=== PATIENT | male | born 1940 | race Caucasian/White ===

== ENCOUNTER 2018-01-24 08:13 | Day surgery (SDC) | payer OTHER ==
[2018-01-24] MEDS ORDERED: LIDOCAINE 1% 300 MG/30 ML SDV SC ONE (08:20)
--- NOTE | 2018-01-24 09:30 | PDHPUP ---
History & Physical Update H&P update statement: This history and physical update is based on an assessment of the patient which was completed after admission or registration (within 24 hours), but prior to the surgery/procedure. H&P update: H&P reviewed & patient examined, no change in patient's condition since H&P completed
--- NOTE | 2018-01-24 10:29 | CPIP ---
[f rep st] INVASIVE CARDIAC PROCEDURE DATE OF PROCEDURE: 01/24/2018 PROCEDURE: LINQ insertion. INDICATIONS: Presyncope. Abnormal Holter monitor with bradycardia and possible atrial tachycardia. COMPLICATIONS: None. DESCRIPTION OF PROCEDURE: Informed consent was obtained. The patient was prepped and draped in ster ile fashion. 1% lidocaine was used for local anesthesia over the left parasternal area. Using stand angela technique, a [employer] LINQ device was inserted subcutaneously, and the incision was closed with 3 otis. Serial number: [id number]. R-waves are reading 0.4 mV at immediate post implant interrogation. CONCLUSIONS: Successful LINQ implantation. Follow up in our office for staple removal and interroga tion in 1 week. Patient currently in stable condition. /[id number]/MODL
== END 2018-01-24 11:07 | disposition home or self-care (01) ==
LOC: FCATH 08:13
PROVIDERS: ATTEND Internal Medicine Cardiovascular Disease
PROC: 0JH60PZ Insertion of Cardiac Rhythm Related Device into Chest Subcutaneous Tissue and Fascia, Open Approach (ICD-10-PCS; principal; 2018-01-24)
DX: R55 Syncope and collapse (principal); R00.1 Bradycardia, unspecified; I48.92 Unspecified atrial flutter; I47.2 Ventricular tachycardia; Q23.1 Congenital insufficiency of aortic valve; I10 Essential (primary) hypertension; R42 Dizziness and giddiness
CPT/HCPCS: C1764

== ENCOUNTER 2018-09-20 11:57 | Inpatient (IN) | payer OTHER ==
[2018-09-20] MEDS ORDERED: diphenhydrAMINE 25 MG CAP PO ONE ×2 (12:06→13:46)
[2018-09-20] MEDS ORDERED: FAMOTIDINE 20 MG TAB PO ONE (12:06)
[2018-09-20] MEDS ORDERED: DIAZEPAM 5 MG TAB PO ONE (12:06)
[2018-09-20] MEDS ORDERED: NS 1,000 ML IV ONE (12:06)
[2018-09-20] MEDS ORDERED: ASPIRIN EC 325 MG TAB PO ONE ×2 (12:06→13:46)
[2018-09-20] MEDS ORDERED: MIDAZOLAM 2 MG/2 ML VIAL ONE (13:23)
[2018-09-20] MEDS ORDERED: LIDOCAINE 1% 300 MG/30 ML SDV ONE (13:23)
[2018-09-20] MEDS ORDERED: IOPAMIDOL (ISOVUE-370) 150 ML BTL IV ONE (13:23)
[2018-09-20] MEDS ORDERED: fentaNYL 100 MCG/2 ML INJ ONE (13:23)
[2018-09-20 13:45] LABS: PLATELET COUNT 157 10^3/uL (150-400)
[2018-09-20] MEDS ORDERED: DIAZEPAM 5 MG TAB ONE (13:46)
[2018-09-20] MEDS ORDERED: FAMOTIDINE 20 MG TAB ONE (13:46)
--- NOTE | 2018-09-20 13:50 | PDPROPOC ---
Sedation Plan of Care Sedation Plan of Care: vital signs stable, mental status noted, patient educated of risks, benefits, alternatives, patient can tolerate sedation ASA Classification: ASA 2 Planned drugs: fentanyl, midazolam Mallampati Score: Class 2 Mallampati Reference Image: Patient passed 3-3-2 rule?: Yes
[2018-09-20 13:53] LABS: INR 1.02 (0.83-1.16); PROTIME(PATIENT) 13.6 SEC (12.0-15.0)
[2018-09-20] MEDS ORDERED: ATROPINE SULFATE 1 MG/10 ML SYR IVP PRN (14:59)
[2018-09-20] MEDS ORDERED: ONDANSETRON 4 MG/2 ML VIAL IVP PRN (14:59)
[2018-09-20] MEDS ORDERED: NITROGLYCERIN 0.4 MG BTL SL PRN (14:59)
[2018-09-20] MEDS ORDERED: CALCIUM CARBONATE 500 MG CHEWABLE TAB PO PRN (15:00)
--- NOTE | 2018-09-20 15:44 | CPIP ---
DATE OF PROCEDURE: 09/20/2018 PROCEDURE: Coronary angiography. INDICATION: 1. Class II to III anginal equivalent. 2. High risk abnormal nuclear stress test with multiple zones of ischemia. ACCESS: Patient was prepped and draped in sterile fashion. 1% lidocaine was used to anesthetize the right inguinal region. A 6-Comoran introducer sheath was placed selectively into the right common fe moral artery via modified Seldinger technique. CORONARY ANGIOGRAPHY: A 6-Comoran JL4 was advanced to the left main coronary artery and images obtain ed. The left main coronary artery trifurcated into an LAD, ramus, and circumflex coronary arteries. The left main coronary artery had a very eccentric distal 50% to 75% stenosis present. The left ant erior descending coronary artery was diffusely diseased. In the mid vessel, there is a single discre te 90% stenosis present. The left anterior descending coronary artery gave rise to 1 prominent diago nal branch. The prominent diagonal branch had a proximal 50% to 60% stenosis present. The ramus cor onary artery was a small to moderate-sized vessel. The ramus coronary artery was 100% occluded. It was being filled by [id number], as well as [id number]-fb-[id number] collaterals. Circumflex coronary artery w as a small to moderate-sized vessel. The circumflex coronary artery had an ostial 70% stenosis prese nt. A 6-Comoran JR4 was advanced to the right coronary artery and images obtained. The right coronary art nieves was dominant. The right coronary artery was diffusely diseased. In the mid vessel, there is a d iscrete 40% stenosis present. LEFT VENTRICULOGRAPHY: Left ventriculography was not performed as patient has a known bicuspid valve with recent assessment by echocardiography. COMPLICATIONS: None. CONCLUSIONS: 1. Left main and 3-vessel coronary artery disease. 2. Plan is for surgical evaluation. /[id number]/MODL
[2018-09-20] MEDS: GABAPENTIN 300 MG CAP PO SCH (21:03)
[2018-09-20] MEDS: ATORVASTATIN CALCIUM 20 MG TAB PO SCH (21:23)
--- NOTE | 2018-09-20 22:45 | CPEKG ---
Test Reason : OPEN Blood Pressure : / mmHG Vent. Rate : 052 BPM Atrial Rate : 053 BPM P-R Int : 255 ms QRS Dur : 112 ms QT Int : 478 ms P-R-T Axes : 055 -39 016 degrees QTc Int : 445 ms Sinus rhythm Prolonged LA interval LAD Nonspecific intraventricular conduction delay Abnormal R-wave progression, early transition Confirmed by Jian Iniguez ([id number]) on 09/20/2018 10:45:24 PM Referred By: Confirmed By:Jian Iniguez
[2018-09-21] MEDS: ASPIRIN 325 MG TAB PO SCH (08:49)
[2018-09-21] MEDS: GABAPENTIN 300 MG CAP PO SCH ×2 (08:49→21:04)
[2018-09-21] MEDS: CYANO/VITAMIN B12 1000 MCG TAB PO SCH (08:51)
[2018-09-21] MEDS: CHOLECALCIFEROL VIT D3 1,000 UNITS TAB PO SCH (08:51)
[2018-09-21] MEDS: VALSARTAN 160 MG TAB PO SCH (08:52)
[2018-09-21] MEDS: METOPROLOL SUCCINATE XR 25 MG TAB PO SCH (08:59)
--- NOTE | 2018-09-21 11:02 | PDMN ---
Medical Necessity Medical necessity: Pt meets inpt criteria per MD order and MCG M-40, Angina. y/ o w/class II to III angina equivalent and high risk abnormal nuclear stress test w/multiple zones of ischemia requiring coronary angiography which revealed left main and 3-vessel coronary artery disease. Pt will have cardiothoracic surgery consult, bypass surgery likely this hospitalization. Est LOS>2MN for further eval and pending surgery/recovery.
--- NOTE | 2018-09-21 15:58 | ASMTCMCOM ---
CM Note CM Note Notes: Pt is a 78 y/o man admitted for CAD. Pt will most likely d/c independent when medically stable. No therapies ordered at this time. CM available for changes. Plan: Independent Date Signed: 09/21/2018 03:57 PM Electronically Signed By:EMILI Saravia
--- NOTE | 2018-09-21 17:40 | SOAPPROG ---
[facility] Progress Note Assessment/Plan: 1. CAD - Pt presented with symptoms of progressive MENDOZA. Angiogram demonstrated significant LM and 3VD. Pt is anticipating CABG in the am. --> CABG in am --> Continue asa, metoprolol, valsartan, and atorvastatin 2. Aortic stenosis - Pt has a functionally bicuspid aortic valve with mild to moderate aortic stenosis. The valve is calcified and expected to deteriorate further. Anticipate AVR at time of surgery 3. Hyperlipidemia - LDL = 44. --> Continue current therapy. Subjective: No chest pain No orthopnea or PND No access site complications Objective: Vital Signs Temp Pulse Resp BP Pulse Ox 36.6 C 57 L 16 130/68 H 92 09/21/18 16:00 09/21/18 16:00 09/21/18 16:00 09/21/18 16:00 09/21/18 16:00 Laboratory Results 09/20/18 13:31 09/20/18 13:31 09/20/18 09/21/18 09/22/18 05:59 05:59 05:59 Intake Total 200 Balance 200 PT 13.6 SEC (12.0-15.0) 09/20/18 13:31 INR 1.02 (0.83-1.16) 09/20/18 13:31 Physical Exam - Physical Exam General Appearance: alert, no apparent distress Respiratory: lungs clear Cardiac/Chest: systolic murmur Abdomen: non-tender, soft Extremities: other (NO hematoma or echymosis.) ICD10 Worksheet Patient Problems: Problems Problem Status Onset Atrial flutter Acute HTN (hypertension) Acute Osteoarthritis of right knee Acute Word finding difficulty Acute
[2018-09-21] MEDS ORDERED: CHLORHEXIDINE GLUC HIBICLENS 118 ML BTL TP SCH (21:00)
[2018-09-21] MEDS: ATORVASTATIN CALCIUM 20 MG TAB PO SCH (21:05)
[2018-09-22] MEDS ORDERED: VERAPAMIL 5 MG, NITROGLYCERIN 2.5 MG, HEPARIN 500 UNIT, SODIUM BICARBONATE 0.2 MEQ in L... MISC ONE (06:00)
[2018-09-22] MEDS ORDERED: PHENYLEPHRINE HCL 50 MG in NS 250 ML IV ONE (06:00)
[2018-09-22] MEDS ORDERED: CITRATE DEXTROSE SOLN 500 ML BAG MISC ONE (06:00)
[2018-09-22] MEDS ORDERED: MUPIROCIN 2% 22 GM OINT NS ONE (06:00)
[2018-09-22] MEDS ORDERED: CARDIOPLEGIC SOLUTION 1,052.8 ML PF ONE (06:00)
[2018-09-22] MEDS ORDERED: ceFAZolin 2 GM/DEXTROSE 100 ML IV ONE (06:00)
[2018-09-22] MEDS ORDERED: MANNITOL 25% 12.5 GM/50 ML VIAL IVP ONE (06:00)
[2018-09-22] MEDS ORDERED: CHLORHEXIDINE GLUC HIBICLENS 118 ML BTL TP SCH (06:00)
[2018-09-22] MEDS ORDERED: PAPAVERINE HCL 60 MG in NS 100 ML IV ONE (06:00)
[2018-09-22] MEDS ORDERED: INSULIN REGULAR HUMAN 100 UNIT in NS 100 ML IV ONE (06:00)
[2018-09-22] MEDS ORDERED: NOREPINEPHRINE BITARTRATE 16 MG in NS 250 ML IV ONE (06:00)
[2018-09-22] MEDS ORDERED: AMINOCAPROIC ACID 5 GM/20 ML VIAL IV ONE (06:00)
[2018-09-22] MEDS ORDERED: DOBUTamine 500 MG in D5W 250 ML IV SCH (06:00)
[2018-09-22] MEDS ORDERED: MILRINONE/DEXTROSE/100 ML BAG IV ONE (06:50)
[2018-09-22] MEDS ORDERED: PROTAMINE SULFATE 50 MG/5 ML VIAL IVP ONE (06:50)
[2018-09-22] MEDS ORDERED: NA BICARBONATE 50 MEQ/50 ML VIAL ONE (06:50)
[2018-09-22] MEDS ORDERED: CALCIUM CHLORIDE 1 GM/10 ML INJ ONE ×2 (06:50→06:51)
[2018-09-22] MEDS ORDERED: HEPARIN 10,000 UNIT/10 ML MDV (1,000 UNIT/ML) ONE ×2 (06:50→06:52)
[2018-09-22] MEDS ORDERED: LIDOCAINE 2% 100 MG/5 ML SYR ONE ×2 (06:51→08:24)
[2018-09-22] MEDS ORDERED: NITROGLYCERIN/D5W 50 MG/250 ML BOTTLE IV ONE (06:51)
[2018-09-22] MEDS ORDERED: ADENOSINE 6 MG/2 ML VIAL ONE (06:51)
[2018-09-22] MEDS ORDERED: niCARdipine/NACL/200 ML BAG IV ONE (06:51)
[2018-09-22] MEDS ORDERED: DOPamine/DEXTROSE 400 MG/250 ML BAG IV ONE (06:51)
[2018-09-22] MEDS ORDERED: ceFAZolin 1 GM VIAL ONE (06:51)
[2018-09-22] MEDS ORDERED: ALBUMIN 5% 250 ML BOTTLE IV ONE (06:51)
[2018-09-22] MEDS ORDERED: AMIODARONE HCL 150 MG/3 ML VIAL ONE ×2 (06:51→06:52)
[2018-09-22] MEDS ORDERED: MAGNESIUM SULFATE 1 GM/2 ML VIAL ONE (06:52)
[2018-09-22] MEDS ORDERED: CITRATE DEXTROSE SOLN 500 ML BAG ONE (06:52)
[2018-09-22] MEDS ORDERED: methylPREDNISolone SOD SUCC 1 GM/8 ML VIAL ONE (06:52)
--- NOTE | 2018-09-22 06:59 | PDHPUP ---
History & Physical Update H&P update statement: This history and physical update is based on an assessment of the patient which was completed after admission or registration (within 24 hours), but prior to the surgery/procedure. H&P update: H&P reviewed & patient examined, changes noted ( in need of AVR)
[2018-09-22] MEDS ORDERED: PAPAVERINE HCL 60 MG/2 ML SDV ONE (07:40)
[2018-09-22] MEDS ORDERED: MIDAZOLAM 2 MG/2 ML VIAL IVP ONE (08:00)
[2018-09-22] MEDS ORDERED: MIDAZOLAM 2 MG/2 ML VIAL ONE ×2 (08:01→08:23)
--- NOTE | 2018-09-22 08:02 | PDANEPAE ---
ANE History of Present Illness and CAD s/f AVR and CABG ANE Past Medical History - Cardiovascular History Hx Hypertension: Yes Hx Arrhythmias: Yes Hx Chest Pain: No Hx Coronary Artery / Peripheral Vascular Disease: No Hx CHF / Valvular Disease: No Hx Palpitations: No Cardiovascular History Comment: A-FLUTTER - Pulmonary History Hx COPD: No Hx Asthma/Reactive Airway Disease: No Hx Recent Upper Respiratory Infection: No Hx Oxygen in Use at Home: No Hx Sleep Apnea: Yes Sleep Apnea Screening Result - Last Documented: Positive - Neurologic History Hx Cerebrovascular Accident: No Hx Seizures: No Hx Dementia: No - Endocrine History Hx Diabetes: No - Renal History Hx Renal Disorders: No - Liver History Hx Hepatic Disorders: No - Neurological & Psychiatric Hx Hx Neurological and Psychiatric Disorders: Yes Neurological / Psychiatric History Comment: MIGRAINES SINCE AGE 19 USES RX FOR AURA. ANXIETY - Cancer History Hx Cancer: No - Congenital Disorder History Hx Congenital Disorders: No - GI History Hx Gastrointestinal Disorders: Yes Gastrointestinal History Comment: REFLUX DURING EXERCISE DOES FOOD MANAGEMENT BEFORE OR USES TUMS - Other Health History Other Health History: HAS CATARACTS - Chronic Pain History Chronic Pain: Yes (RT KNEE) - Surgical History Prior Surgeries: ATRIAL ABLATION 09/2015. CORNELIUS KNEE SCOPES ANE Review of Systems Review of Systems: - Exercise capacity Exercise capacity: >=4 METS ANE Patient History - Allergies Allergies/Adverse Reactions: mold Allergy (Verified 07/22/15 17:33) - Home Medications Home medications: home medication list seen and reviewed Home Medications: Apixaban [Eliquis] 5 mg PO BID 09/19/18 [Last Taken 09/18/18] Aspirin [Aspirin 325 mg (*)] 325 mg PO DAILY 09/19/18 [Last Taken Unknown] Atorvastatin Calcium [Lipitor 20 mg (*)] 20 mg PO HS 09/19/18 [Last Taken ] Calcium Carbonate [Tums 500MG (*)] 500 mg PO DAILY PRN 09/19/18 [Last Taken Unknown] Cholecalciferol Vit D3 [Vitamin D3 (*)] 1,000 units PO DAILY 09/19/18 [Last Taken 09/18/18] Cyanocobalamin [Vitamin B12 (*)] 1,000 mcg PO DAILY 09/19/18 [Last Taken ] Gabapentin [Neurontin 300 MG (*)] 1,200 mg PO BID 09/19/18 [Last Taken 09/18/18] Metoprolol Succinate Xr [Toprol Xl 25 mg (*)] 12.5 mg PO DAILY 09/19/18 [Last Taken 09/18/18] [place]-3 Fatty Acids [Fish Oil 1000 mg (*)] 1,000 mg PO DAILY 09/19/18 [Last Taken 09/18/18] Valsartan [Diovan (*)] 160 mg PO DAILY 09/19/18 [Last Taken 09/18/18] - NPO status NPO Status: no food or drink >8 hours NPO Since - Liquids (Date): 09/21/18 NPO Since - Liquids (Time): 18:00 NPO Since - Solids (Date): 09/21/18 NPO Since - Solids (Time): 18:00 - Smoking Hx Smoking Status: Never smoked - Alcohol Use Alcohol Use: Rarely - Family Anes Hx Family Anes Hx: none ANE Labs/Vital Signs - Labs Result Diagrams: 09/20/18 13:31 09/20/18 13:31 - Vital Signs Blood Pressure: 139/72 Heart Rate: 50 Respiratory Rate: 16 O2 Sat (%): 92 Height: 183 cm Weight: 93.077 kg ANE Physical Exam - Airway Neck exam: FROM Mallampati Score: Class 2 Mouth exam: poor dentition - Pulmonary Pulmonary: no respiratory distress - Cardiovascular Cardiovascular: regular rate and rhythym - ASA Status ASA Status: III ANE Anesthesia Plan Anesthesia Plan: general endotracheal anesthesia Lines/Monitors: arterial line, central line, NAIN
[2018-09-22] MEDS ORDERED: REMIFENTANIL HCL 1 MG VIAL ONE ×2 (08:23→10:25)
[2018-09-22] MEDS ORDERED: PROPOFOL/EMULSION 500 MG/50 ML BOTTLE IV ONE ×2 (08:23→10:25)
[2018-09-22] MEDS ORDERED: fentaNYL 250 MCG/5 ML INJ ONE ×2 (08:23→13:36)
[2018-09-22] MEDS ORDERED: ONDANSETRON 4 MG/2 ML VIAL ONE (08:24)
[2018-09-22] MEDS ORDERED: DEXAMETHASONE 4 MG/ML VIAL ONE ×2 (08:24)
[2018-09-22] MEDS ORDERED: ROCURONIUM 100 MG/10 ML VIAL ONE (08:24)
[2018-09-22] MEDS ORDERED: ePHEDrine SULFATE 25 MG/5 ML SYR ONE (08:40)
[2018-09-22] MEDS ORDERED: PHENYLEPHRINE HCL 100 MCG/ML SYR ONE (09:53)
--- NOTE | 2018-09-22 10:31 | ASMTCMCOM ---
CM Note CM Note Notes: Pt is having open heart surgery today. Needs are TBD at this time. CM will discuss with Dr. Marsh/team. Date Signed: 09/22/2018 10:29 AM Electronically Signed By:EMILI Saravia
[2018-09-22] MEDS: ASPIRIN 325 MG TAB PO SCH (12:35)
[2018-09-22] MEDS: CYANO/VITAMIN B12 1000 MCG TAB PO SCH (12:35)
[2018-09-22] MEDS: CHOLECALCIFEROL VIT D3 1,000 UNITS TAB PO SCH (12:35)
[2018-09-22] MEDS: METOPROLOL SUCCINATE XR 25 MG TAB PO SCH (12:38)
[2018-09-22] MEDS: GABAPENTIN 300 MG CAP PO SCH (12:38)
[2018-09-22] MEDS: VALSARTAN 160 MG TAB PO SCH (12:39)
[2018-09-22] MEDS ORDERED: DEXMEDETOMIDINE HCL 400 MCG in NS 100 ML IV SCH (13:00)
[2018-09-22] MEDS ORDERED: ONDANSETRON 4 MG/2 ML VIAL IVP PRN (14:09)
[2018-09-22] MEDS ORDERED: ACETAMINOPHEN 325 MG TAB PO PRN (14:09)
[2018-09-22] MEDS ORDERED: LACTULOSE 20 GM/30 ML UDCUP PO PRN (14:09)
[2018-09-22] MEDS ORDERED: PANTOPRAZOLE SODIUM 40 MG VIAL IVP ONE (14:09)
[2018-09-22] MEDS ORDERED: BISACODYL 10 MG SUPP PR PRN (14:09)
[2018-09-22] MEDS ORDERED: SODIUM CL NASAL 45 ML BTL EACHNARE PRN (14:09)
[2018-09-22] MEDS ORDERED: POLYETHYLENE GLYCOL 3350 17 GM PKT PO PRN (14:09)
[2018-09-22] MEDS ORDERED: ONDANSETRON DISINTEGRATING 4 MG TAB PO PRN (14:09)
[2018-09-22] MEDS ORDERED: POTASSIUM Cl (KCl) 50 ML IV PRN (14:09)
[2018-09-22] MEDS ORDERED: METOCLOPRAMIDE 10 MG/2 ML VIAL IVP PRN (14:09)
[2018-09-22] MEDS ORDERED: MAGNESIUM HYDROXIDE 30 ML UDCUP PO PRN (14:09)
[2018-09-22] MEDS ORDERED: ACETAMINOPHEN 650 MG SUPP PR PRN (14:09)
[2018-09-22] MEDS ORDERED: MEPERIDINE 25 MG/0.5 ML AMP IVP PRN (14:09)
[2018-09-22] MEDS ORDERED: D50W 25 GM/50 ML SYR IVP PRN (14:09)
[2018-09-22] MEDS ORDERED: NS 1,000 ML IV SCH (14:15)
[2018-09-22] MEDS ORDERED: INSULIN REGULAR HUMAN 100 UNIT in NS 100 ML IV SCH (14:30)
[2018-09-22] MEDS ORDERED: niCARdipine/NACL 200 ML IV SCH (14:30)
--- NOTE | 2018-09-22 14:49 | GOP ---
DATE OF OPERATION: 09/22/2018 SURGEON: Suman Abarca MD DRAWER IN JACQUARD LOOM: Iglesia Payne PA-C PREOPERATIVE DIAGNOSIS: 1. Severe left main coronary artery disease. 2. Ousj-tt-xtuhrztk aortic stenosis with grqo-be-fjyynxru aortic insufficiency. POSTOPERATIVE DIAGNOSIS: 1. Severe left main coronary artery disease. 2. Baqs-qg-wxnklyot aortic stenosis with oash-sl-emuxnmyt aortic insufficiency. PROCEDURE PERFORMED: 1. Triple vessel coronary artery bypass grafting. 2. Endoscopic vein harvest from the left leg. 3. Aortic valve replacement using a 27 mm Magna Ease bovine pericardial valve. FINDINGS: INDICATIONS: Patient is a 78-year-old gentleman with atypical angina. He had cardiac catheterizatio n and was found to have left main disease. Right coronary is normal. He has javd-kg-jcemnxwf aortic stenosis, but an extremely heavily calcified valve and at least mild aortic insufficiency. We have elected to replace his valve at the time of his coronary bypass surgery. DESCRIPTION OF PROCEDURE: The patient was taken to the operating room and placed on the operating ta ble in the supine position. After the induction of general anesthesia and single-lumen arterial tube intubation, the patient was prepped and draped sterilely. A standard median sternotomy was performe d, and the left internal mammary artery was taken down with electrocautery and hemoclips. While the saphenous vein was harvested from the left leg using a minimally invasive endoscopic technique, the p atient was heparinized and mammary was found to have good flow. The patient was cannulated with a Sa rns 8.0 Soft-Flow aortic cannula, as well as dual-staged venous right atrial cannula. Cardiopulmonar y bypass was instituted. The distal vessels were marked for grafting. The cross-clamp was applied a nd the heart was arrested with 1 L of [place] solution. First, the marginal branch of the circumfle x was dissected open, probed and anastomosed end-to-side to a vein graft using running 7-0 Prolene. Next the diagonal was also dissected open and anastomosed end-to-side to a separate vein graft. Insp ection of the ramus revealed a small, occluded diminutive vessel. The LAD was opened in its 3rd port ion and anastomosed end-to-side to the left internal mammary artery. This was then tacked to the epi cardium. Attention was directed next to the aortic valve. The aorta was opened and a tri-leaflet va lve was encountered. It was excised and the annulus was meticulously debrided. It was sized to a 27 mm valve and then sutures were then placed around the annulus with pledgets on the ventricular side, and the valve was seated without difficulty. The aorta was then closed in 2 layers and the cross-cl amp was removed. A partial occlusion clamp was placed and the vein grafts were each individually coco stomosed end-to-side to the ascending aorta using running 6-0 Prolene. These were de-aired and allow ed to flow freely. Left, right and mediastinal chest tubes were placed, as well as 2 ventricular pac ing wires. The patient was from bypass without difficulty. Post pump transesophageal echo shows preservation of left ventricular function and a normally functioning bioprosthetic valve the a ortic position. Protamine was administered and the patient was decannulated. All the cannulation sit es were doubly secured with Prolene suture, and after hemostasis had been achieved the heart was cove red with pericardium and fat, and the chest was closed with #6 stainless steel wires. Subcutaneous t issue and skin were closed with running Vicryl suture. Patient tolerated the procedure well. SUMMARY OF GRAFTS: Left internal mammary artery to the left anterior descending artery, saphenous ve in graft from the aorta to D2, saphenous vein graft from aorta to M1. /[id number]/MODL
[2018-09-22] MEDS: ALBUMIN 5% 250 ML IV PRN ×2 (15:00→19:01)
[2018-09-22] MEDS ORDERED: ALBUMIN 5% 500 ML BOTTLE IV ONE (16:43)
[2018-09-22] MEDS ORDERED: ALBUMIN 5% 500 ML IV ONE (17:00)
[2018-09-22] MEDS: fentaNYL 100 MCG/2 ML INJ IVP PRN ×2 (18:46→23:07)
[2018-09-22] MEDS: SENNOSIDES/DOCUSATE SODIUM TAB PO SCH (21:26)
[2018-09-22] MEDS: MUPIROCIN 2% 22 GM OINT NS SCH (22:32)
[2018-09-22] MEDS: ceFAZolin 2 GM/DEXTROSE 100 ML IV SCH (22:32)
[2018-09-22] MEDS: HYDROCODONE/APAP 5/325 TAB PO PRN (22:55)
[2018-09-23] MEDS ORDERED: ALBUMIN 5% 250 ML BOTTLE IV ONE ×2 (01:03→07:14)
[2018-09-23] MEDS: fentaNYL 100 MCG/2 ML INJ IVP PRN ×2 (01:21→05:41)
[2018-09-23 05:11] LABS: PLATELET COUNT 84 10^3/uL (150-400)
[2018-09-23] MEDS: HYDROCODONE/APAP 5/325 TAB PO PRN (05:41)
[2018-09-23] MEDS: ceFAZolin 2 GM/DEXTROSE 100 ML IV SCH ×3 (05:48→22:35)
--- NOTE | 2018-09-23 07:34 | SOAPPROG ---
[facility] Progress Note Assessment/Plan: POD#1 CABG x 3/AVR (#27 Magna Ease tissue valve)/Endoscopic vein harvest left leg CAD with severe left main stenosis - s/p CABG x 3. -On ASA. Will resume Lipitor when taking better po. No BB or ACEi for now to avoid hypotension. Aortic stenosis/insufficiency with bicuspid aortic valve - s/p tissue AVR. On ASA. Hx Paroxysmal Afib/Aflutter - s/p Aflutter ablation 2014 - On Eliquis preop. Currently in SR 70's. - No BB to avoid hypotension. HTN - Radial Glenys pressures ~30pts higher than cuff pressures. - Will d/c Glenys. Cuff pressure shows SBP upper 80's. Will give albumin and monitor. Hold BB. SHANIQUE on CPAP - Stable no issues Acute blood loss anemia - H&H 9.7/27.7 (10.2/29.1). - Will follow. Secondary thrombocytopenia d/t CPB - Plt count 84k (104k). Will follow. Hx of speech and balance problems - Speech problems this am, however no focal deficits. - Will try to avoid narcs and treat pain with Tylenol. GERD - Stable. On Pepcid. Migraines - On Gabapentin prn. DVT prophylaxis - SCDs only. Plan: D/c Glenys and chastity D/c martinez Wrap and cap pacing wires Transfer to floor today Subjective: Patient reports having a long history of sternal pain from injury in the past which is exacerbated with sternotomy. Patient reports poor pain control. Objective: Vital Signs Temp Pulse Resp BP Pulse Ox 36.9 C 74 20 119/52 L 94 09/23/18 04:00 09/23/18 07:00 09/23/18 07:00 09/23/18 06:00 09/23/18 07:00 Laboratory Results 09/23/18 05:03 09/23/18 05:03 09/22/18 09/23/18 09/24/18 05:59 05:59 05:59 Intake Total 100 1918 Output Total 1870 105 Balance 100 48 -105 PT 13.6 SEC (12.0-15.0) 09/20/18 13:31 INR 1.02 (0.83-1.16) 09/20/18 13:31 Physical Exam - Physical Exam General Appearance: WD/WN, alert, no apparent distress Neck: supple Respiratory: lungs clear, normal breath sounds, decreased breath sounds Cardiac/Chest: regular rate, rhythm, friction rub, other (sternum stable, sternotomy c/d/i.) Abdomen: non-tender, soft, other (hypoactive BS) Skin: normal color, warm/dry Extremities: other (Warm, no edema. left leg incision c/d/i. ) Neuro/Psych: alert, normal mood/affect (problems with speech this am, however has a history of this preop. ) ICD10 Worksheet Patient Problems: Problems Problem Status Onset Acute blood loss as cause of postoperative anemia Acute CAD (coronary artery disease) Acute S/P AVR Acute S/P CABG x 3 Acute Atrial flutter Acute HTN (hypertension) Acute Osteoarthritis of right knee Acute Word finding difficulty Acute
--- NOTE | 2018-09-23 07:56 | CPEKG ---
Test Reason : OPEN Blood Pressure : / mmHG Vent. Rate : 072 BPM Atrial Rate : 072 BPM P-R Int : 261 ms QRS Dur : 153 ms QT Int : 464 ms P-R-T Axes : 068 000 -06 degrees QTc Int : 508 ms Sinus rhythm Prolonged VT interval Right bundle branch block Compared to EKG dated September 20 2018 the RBBB is new and the VT interval prolongation has increased Confirmed by Jian Iniguez ([id number]) on 09/23/2018 7:56:31 AM Referred By: Confirmed By:Jian Iniguez
[2018-09-23] MEDS ORDERED: ALBUMIN 5% 250 ML IV ONE ×2 (08:00→08:35)
[2018-09-23] MEDS ORDERED: OXYCODONE/APAP 5/325 TAB PO PRN (08:08)
[2018-09-23] MEDS: CHOLECALCIFEROL VIT D3 1,000 UNITS TAB PO SCH (08:56)
[2018-09-23] MEDS: ASPIRIN 81 MG CHEWABLE TAB PO SCH (08:56)
[2018-09-23] MEDS: SENNOSIDES/DOCUSATE SODIUM TAB PO SCH ×2 (08:56→20:29)
[2018-09-23] MEDS: PANTOPRAZOLE SODIUM 40 MG TAB PO SCH (08:56)
[2018-09-23] MEDS: MUPIROCIN 2% 22 GM OINT NS SCH ×2 (08:58→20:31)
[2018-09-23] MEDS ORDERED: ACETAMINOPHEN 325 MG TAB PO PRN (10:25)
--- NOTE | 2018-09-23 11:10 | POSTANESTH ---
Post Anesthetic Evaluation Cardiovascular Status: Normal, Stable Respiratory Status: Normal, Stable, Tx Decrease in SpO2 (mild post op decreased O2) Level of Consciousness/Mental Status: Can Participate in Eval, Alert and Oriented Pain Control: Adequate, Prn Tx Ordered Nausea/Vomiting Control: Adequate, Prn Tx Ordered Complications Possibly Related to Anesthesia: None Noted
[2018-09-23] MEDS: traMADol 50 MG TAB PO PRN ×3 (11:25→20:30)
[2018-09-23] MEDS: FAMOTIDINE 20 MG TAB PO SCH (11:26)
[2018-09-23] MEDS: oxyCODONE IR 5 MG TAB PO PRN ×3 (13:47→23:40)
[2018-09-23] MEDS ORDERED: NS 500 ML IV ONE (19:30)
[2018-09-24] MEDS: traMADol 50 MG TAB PO PRN (03:50)
[2018-09-24 04:12] LABS: PLATELET COUNT 104 10^3/uL (150-400)
[2018-09-24] MEDS: oxyCODONE IR 5 MG TAB PO PRN ×2 (04:40→09:37)
[2018-09-24] MEDS: ceFAZolin 2 GM/DEXTROSE 100 ML IV SCH (04:42)
[2018-09-24] MEDS: ASPIRIN 81 MG CHEWABLE TAB PO SCH (08:06)
[2018-09-24] MEDS: FAMOTIDINE 20 MG TAB PO SCH (08:06)
[2018-09-24] MEDS: PANTOPRAZOLE SODIUM 40 MG TAB PO SCH (08:06)
[2018-09-24] MEDS: SENNOSIDES/DOCUSATE SODIUM TAB PO SCH ×2 (08:06→21:12)
[2018-09-24] MEDS: CHOLECALCIFEROL VIT D3 1,000 UNITS TAB PO SCH (08:06)
[2018-09-24] MEDS ORDERED: ALBUMIN 5% 250 ML IV ONE (09:43)
--- NOTE | 2018-09-24 10:45 | ASMTCMCOM ---
CM Note CM Note Notes: Patient transferred to ICU after code blue, Pat was in the room and has called her sister for support. CM to follow. Date Signed: 09/24/2018 10:45 AM Electronically Signed By:Rochelle Staley
[2018-09-24] MEDS ORDERED: MAGNESIUM SULF 1 GM/DEXTROSE 100 ML BAG IV ONE (11:33)
--- NOTE | 2018-09-24 11:50 | SOAPPROG ---
[facility] Progress Note Assessment/Plan: Assessment: 78-year-old male currently 3 days postoperative from 3 vessel bypass surgery which was performed in conjunction with placement of a bioprosthetic aortic valve. Historically, he has had a normal ejection fraction. A bedside echocardiogram was done today which confirms a normal ejection fraction. Earlier today he developed hemodynamically unstable polymorphic VT in the setting of a prolonged QT interval. This appears to be consistent with torsade de Pointe. It appears that this was triggered by a PVC. Following a single defibrillation appears to be doing well. He is currently in an accelerated junctional rhythm. He has had a history of sick sinus syndrome. Postoperatively there have been documented episodes of complete heart block as well as episodes of atrial fibrillation. Plan: 1. I reprogrammed his epicardial pacemaker to a rate of 80 beats per minute. While he is currently in an accelerated junctional rhythm at 90 beats per minute , I anticipate that eventually he will start to slow down. The elevated base rate should help shorten his QT interval and prevent further episodes similar to this. 2. He was given a g of magnesium intravenously. 3. Currently a full metabolic panel including magnesium is pending. 4. I have asked the pharmacist to review his medications for any drug drug interactions or isolated medications that could be precipitating elongation of his QT interval. 5. He will be monitored in the ICU. 6. I think that prior to hospital discharge he would benefit from placement of a dual-chamber ICD. Subjective: Earlier today, the patient developed unstable torsade de Pointe. Code blue was called. The patient was resuscitated with a single 200 joule shock. There was no CPR performed. The patient did not receive any medications. He is currently postoperative day 3 following three-vessel coronary artery bypass graft surgery which was performed in conjunction with bioprosthetic aortic valve replacement. He initially presented with angina and by coronary angiography was found to have three-vessel disease with moderate aortic stenosis. He has a history of paroxysmal atrial flutter status post ablation in 2015. He has had recurrent paroxysmal atrial fibrillation for which he was treated as an outpatient with systemic anticoagulation. Additionally, he has a history of sick sinus syndrome with outpatient monitoring indicating episodes of Mobitz type 1 av block. He has had nonsustained ventricular tachycardia noted on outpatient monitoring as well. Earlier today he was sitting in his chair doing well. He developed the abrupt onset of what appears to be torsade de Pointe and was treated as above. In reviewing telemetry strips and electrocardiographic tracings he has an electrocardiogram that demonstrates a right bundle branch block with a prolonged QT interval above 500 milliseconds. On telemetry it appears that he had a PVC which occurred on the T-wave. This likely precipitated the development of this arrhythmia. Following the defibrillation, his ECG demonstrated similar findings with no acute ST or T changes. He was in an accelerated junctional rhythm. Previously he had been in complete heart block. He has epicardial leads in place which were being used for demand pacing. Objective: Vital Signs Temp Pulse Resp BP Pulse Ox 36.7 C 64 19 98/53 L 92 09/24/18 07:23 09/24/18 07:23 09/24/18 07:23 09/24/18 07:23 09/24/18 07:23 Laboratory Results 09/24/18 03:50 09/24/18 10:40 09/23/18 09/24/18 09/25/18 05:59 05:59 05:59 Intake Total 1918 2280.5 250 Output Total 1870 995 25 Balance 48 1285.5 225 PT 13.6 SEC (12.0-15.0) 09/20/18 13:31 INR 1.02 (0.83-1.16) 09/20/18 13:31 Physical Exam - Physical Exam General Appearance: WD/WN, other (He is appropriate however appears to have word -finding difficulties) EENT: PERRL/EOMI Neck: non-tender, full range of motion Respiratory: lungs clear, No crackles, No rales, No rhonchi Cardiac/Chest: regular rate, rhythm, edema (Trace edema), systolic murmur (11/19) , other (Midline sternotomy incision which is healed well, chest tube in place) , No gallop, No JVD Peripheral Pulses: 2+: carotid (R), carotid (L) Abdomen: normal bowel sounds, non-tender, soft Male Genitalia: deferred Rectal: deferred Neuro/Psych: alert, normal mood/affect ICD10 Worksheet Patient Problems: Problems Problem Status Onset Acute blood loss as cause of postoperative anemia Acute CAD (coronary artery disease) Acute S/P AVR Acute S/P CABG x 3 Acute Atrial flutter Acute HTN (hypertension) Acute Osteoarthritis of right knee Acute Word finding difficulty Acute
[2018-09-24] MEDS ORDERED: MAGNESIUM SULF 1 GM/DEXTROSE 100 ML IV ONE (12:00)
--- NOTE | 2018-09-24 12:14 | SOAPPROG ---
SOAP Progress Note Assessment/Plan: POD#2 CABG x 3/AVR (#27 Magna Ease tissue valve)/Endoscopic vein harvest left leg CAD with severe left main stenosis - s/p CABG x 3. -On ASA and Lipitor. No BB to avoid hypotension and d/t pauses. Aortic stenosis/insufficiency with bicuspid aortic valve - s/p tissue AVR. On ASA. Polymorphic VT/Torsades arrest s/p defib x 1 this am - Patient was defibrillated once with immediate recovery. Chest compressions not performed. - Transferred back to ICU today. - Cardiology evaluated patient and recommends ICD placement prior to discharge. - Repeat labs and echo pending Paroxysmal Afib/Aflutter s/p Aflutter ablation 2015 - On Eliquis preop. - Short runs of afib and several pauses yesterday requiring pacing. Currently in an accelerated junctional rhythm in the 90's with backup rate of 80. - Cardiology evaluated patient today and recommends ICD/PPM prior to discharge. - No BB to avoid hypotension. HTN - Radial Glenys pressures were ~30pts higher than cuff pressures when initially in ICU. - Patient actually hypotensive postop with SBP 80-100's. - Will start Dopamine today. SHANIQUE on CPAP - Stable no issues Acute blood loss anemia - H&H 9.5/28.9 (9.7/27.7) - Will follow Secondary thrombocytopenia d/t CPB - Plt count 104 (84k) - Will follow Leukocytosis - WBC 17.0 (10.5). Patient afebrile with no overt evidence of infection. - Will check UA and continue to follow Acute kidney injury - BUN 29/Cr 1.5 (18/0.8) with diminishing urine output. - Will check Reena and repeat labs in am - D51/2NS at 50mls/hr started today - Received albumin this am AMS changes/Hx of speech and balance problems - Patient more confused this am. - Problems with word finding worsening, however no focal deficits. - Will d/c narcs and treat pain with Tylenol. - Will ask Neurology to see patient. GERD - Stable. On Pepcid. Migraines - On Gabapentin prn. DVT prophylaxis - SCDs only. Subjective: Patient is confused and frustrated because he is having problems with word finding. Patient reports adequate pain control right now. Objective: Vital Signs Temp Pulse Resp BP Pulse Ox 36.7 C 64 19 98/53 L 92 09/24/18 07:23 09/24/18 07:23 09/24/18 07:23 09/24/18 07:23 09/24/18 07:23 Laboratory Results 09/24/18 03:50 09/24/18 10:40 09/23/18 09/24/18 09/25/18 05:59 05:59 05:59 Intake Total 1918 2280.5 250 Output Total 1870 995 25 Balance 48 1285.5 225 PT 13.6 SEC (12.0-15.0) 09/20/18 13:31 INR 1.02 (0.83-1.16) 09/20/18 13:31 Physical Exam - Physical Exam General Appearance: WD/WN, alert, no apparent distress Neck: supple Respiratory: normal breath sounds, decreased breath sounds (bases), other (No wheezing, rhochi, rales.) Cardiac/Chest: regular rate, rhythm, friction rub, other (No murmurs or gallops. Sternum stable. Sternotomy c/d/i. ) Abdomen: normal bowel sounds, non-tender, soft Skin: normal color, warm/dry Extremities: other (Warm, minimal lower extremity edema. Leg incision c/d/i. ) Neuro/Psych: alert, normal mood/affect (Difficulty with word finding.) ICD10 Worksheet Patient Problems: Problems Problem Status Onset Acute blood loss as cause of postoperative anemia Acute CAD (coronary artery disease) Acute S/P AVR Acute S/P CABG x 3 Acute Atrial flutter Acute HTN (hypertension) Acute Osteoarthritis of right knee Acute Word finding difficulty Acute
[2018-09-24] MEDS ORDERED: ALBUMIN 5% 250 ML BOTTLE IV ONE (13:12)
[2018-09-24] MEDS ORDERED: D5W 1/2 NS 1,000 ML IV SCH (13:45)
--- NOTE | 2018-09-24 14:04 | ECHO ---
[email or web address] [address] Main: [phone] Fax: Transthoracic Echocardiogram Name: MAICO VYAS MR#: [id number] Study Date: 09/24/2018 Study Time: 10:57 AM Date of : 1940 Age: 78 year(s) Height: ( ) Weight: ( ) BSA: Gender: Male Examination: Echo Indication: Cardiac arrest/ post op CABG x 3/AVR 27magna Image Quality: Contrast: Requested by: Suman Seo BP: / Heart Rate: Rhythm: Indication: Cardiac arrest/ post op CABG x 3/AVR 27magna Procedure Staff [employer]: Honey Esposito RDCS Reading Physician: Tuan Winston MD Requesting Provider: Conclusions: Normal size left ventricle. Mild concentric LV hypertrophy. Global hypercontractility of the left ventricle. No regional wall motion abnormality. Diastolic dysfunction is present. . The left atrium is moderately dilated. The right atrium is mildly dilated. Mild mitral valve regurgitation is present. The aortic valve is a bioprosthesis. Normal functioning aortic valve prosthesis. Mild tricuspid regurgitation is present. No pericardial effusion. Compared to 09/11/2018, a bioprosthetic aortic valve is now in place. Measurements: Chambers Valvular Assessment AV/MV Valvular Assessment TV/PV Normal Normal Normal Name Value Range Name Value Range Name Value Range Ao Clua (MM): 3.7 cm (2.2 cm-3.7 AV Vmax: 2.17 m/s (1 m/s-1.7 TR Vmax: 2.27 mm/s ( - ) cm) m/s) TR PGmax: 21 mmHg ( - ) AV meanP mmHg ( - ) syst. PAP: 26 mmHg ( - ) MV E Vmax: 1.16 m/s ( - ) Continued Measurements: Chambers Valvular Assessment AV/MV Valvular Assessment TV/PV Name Value Name Value Name Value LADs: 5.0 cm MV E' Septal: 0.05 m/s CVP (est.): 5 mmHg Patient: MAICO VYAS Study Date: 09/24/2018 Page 1 of 2 10:57 AM LADs Lon.7 cm MV E/E' Septal: 21.20 LA Area: 30.1 cm2 MV E/E' Lateral: 15.30 Additional Vessels Name Value Ao Ascendin.9 cm Findings: Left Ventricle: Normal size left ventricle. Mild concentric LV hypertrophy. Global hypercontractility of the left ventricle. No regional wall motion abnormality. Diastolic dysfunction is present. . Right Ventricle: Normal size right ventricle. Left Atrium: The left atrium is moderately dilated. Right Atrium: The right atrium is mildly dilated. Mitral Valve: The mitral valve is normal in appearance. Mild mitral valve regurgitation is present. Aortic Valve: The aortic valve is a bioprosthesis. Normal functioning aortic valve prosthesis. Tricuspid Valve: The tricuspid valve is normal in appearance and function. Mild tricuspid regurgitation is present. The pulmonary artery pressure is normal. Pulmonic Valve: The pulmonic valve is normal in appearance and function. Aorta: The aorta is normal. Pericardium: No pericardial effusion. (No Signature Object) Patient: MAICO VYAS Study Date: 09/24/2018 Page 2 of 2 10:57 AM [id number]
[2018-09-24] MEDS: ACETAMINOPHEN 500 MG TAB PO PRN ×2 (15:00→21:12)
[2018-09-24] MEDS: MUPIROCIN 2% 22 GM OINT NS SCH (16:23)
--- NOTE | 2018-09-24 17:03 | GCON ---
CRITICAL CARE CONSULTATION DATE OF CONSULTATION: 09/24/2018 HISTORY OF PRESENT ILLNESS: This patient is a 78-year-old male with a history of paroxysmal atrial f ibrillation and atrial flutter, along with bicuspid aortic valve and moderate aortic stenosis who com plained of dyspnea on exertion and had an abnormal stress test resulting in cardiac cath on 8, that showed 3 vessel disease, and he eventually underwent coronary artery bypass grafting, as well as aortic valve replacement on 09/22/2018. Postoperatively, he did well. He was extubated and torrez sferred out of the unit within 24 hours; however, his blood pressure was somewhat marginal yesterday, and there was a discrepancy between his arterial line and his cuff. He was given some albumin and t he arterial line was discontinued, and at about 1600 yesterday, he was having pauses, and his externa l pacer was applied. He subsequently developed atrial fibrillation around 1750. The pacer was disco ntinued, but his blood pressure dropped, and at 1845, he was found to be in a junctional rhythm with a rate of about 50, and his pacer was return to V pacing at 80. He was also given normal saline and his blood pressure improved to about 98/53. He was relatively stable overnight, but this morning he was up in a chair and the nurses noticed on t elemetry that he had a sudden onset of what appeared to be ventricular fibrillation. They acted very quickly and Dr. Baptiste was also nearby and they applied 1 shock. No CPR was performed and no medicat ions were given. A Code was called. I responded within 30 seconds. On arrival in the room, the pat roberto was awake and sitting in the chair. He was subsequently transferred to the bed and was able ans wer questions actually fairly well. Rhythm strips showed that there were some PACs, some ventricular fibrillation, but what also appeared to be a polymorphic ventricular tachycardia, which changed to a n accelerated junctional rhythm. Dr. Baptiste reprogrammed his pacer to paced at 80 and had laboratory values checked. Of note, this patient has had occasional Mobitz I arrhythmias in the past, as well a s nonsustained ventricular tachycardia. He has been somewhat confused postoperatively, including today and is somewhat frustrated with this, and is unable to complete sentences, though he is speaking clearly without much difficulty. There head s been no hemoptysis. His chest tubes remain in place. There have been no fevers, chills, or sweats . Otherwise, his review of systems is negative. PAST MEDICAL HISTORY: Includes: 1. Atrial fibrillation and flutter as described. 2. Aortic stenosis. 3. Anxiety. 4. Gastroesophageal reflux disease. 5. Bicuspid aortic valve. 6. Hypertension. 7. Migraines. 8. Sleep apnea on CPAP. 9. Nonsustained ventricular tachycardia in 2017. 10. Questionable TIA in the past. 11. Occasional Mobitz I. He did have a LINQ monitor in place. PAST SURGICAL HISTORY: Includes ablation in 2015, appendectomy, tonsillectomy, knee scope, and surg eries as described. SOCIAL HISTORY: He does have no smoking history, but some alcohol. FAMILY HISTORY: Includes coronary disease and cancers. MEDICATIONS: At this time include Tylenol, aspirin, Lipitor, Dulcolax, Tums, vitamin D, Pepcid, Neur ontin, Reglan, Zofran, MiraLAX, Senokot, normal saline nasal spray. PHYSICAL EXAMINATION: VITAL SIGNS: At the time that I evaluated him, which was moments after the ar rest, his blood pressure was 121/41, heart rate of 74, respirations 20, oxygen saturation 94% on 3-1/ 2 L. GENERAL: He was somewhat somnolent, but was able to follow commands and answer questions somew hat mostly appropriately. His pupils are equally round and reactive to light. Nonicteric and noninj ected. Mucous membranes are moist without erythema or exudate. NECK: Supple, without adenopathy or jugular vein distention. CHEST: His chest wall incision was clean and dry without evidence of infe ction. Breath sounds revealed some coarse breath sounds bilaterally. HEART: Appeared to be regular without obvious murmur. ABDOMEN: Soft, nontender, nondistended without hepatosplenomegaly. EXTREM ITIES: No clubbing, cyanosis, or edema. NEUROLOGIC: Exam, other than somnolence, was nonfocal, inc luding cranial nerves, deep tendon reflexes. SKIN: Warm and dry, without evidence of rash. OBJECTIVE DATA: White blood cell count was 17, today, which is up from 10 yesterday, hematocrit 28, platelets of 104. Basic metabolic panel this morning was remarkable for creatinine 1.5, otherwise no rmal, currently 1.46, glucose 129. LFTs were normal. Albumin 3.2. Urinalysis is benign. There are no cultures. Chest x-ray this morning showed minor atelectasis, but otherwise stable. ASSESSMENT/PLAN: 1. Cardiac arrest. Fortunately, this was quite brief and likely arrhythmia driven. His magnesium w as 2.2, and he was given a g of magnesium as well, and increased his pacer to maintain his rhythm. H is blood pressure is certainly normal now, and we will continue to monitor this closely. I think the likelihood of a coronary event is exceedingly low after coronary artery bypass graft, and it is of l ittle surprise he may have some arrhythmias given his lengthy history, as well as his recent surgery. We will continue to monitor him very closely in the ICU for now. 2. Hypoxemia. This is likely due to some pulmonary edema. I would like to look at a chest x-ray no w and in the morning. I do not feel blood gas to be particularly useful right now as I do not feel t his is a primarily pulmonary event. 3. Sleep apnea. He should continue to use his own CPAP. It is unclear to me if he has that present now, but I will double check on that and make sure that he, in fact, uses that. A total of about 65 minutes of critical care time was required in the evaluation and management of th is patient. /[id number]/MODL
--- NOTE | 2018-09-24 20:17 | CPEKG ---
Test Reason : RHYTHM CHANGES Blood Pressure : / mmHG Vent. Rate : 099 BPM Atrial Rate : 101 BPM P-R Int : 146 ms QRS Dur : 148 ms QT Int : 431 ms P-R-T Axes : 000 -12 -07 degrees QTc Int : 554 ms Atrial fibrillation Right bundle branch block Nonspecific ST and T wave abnormality Confirmed by Jian Iniguez ([id number]) on 09/24/2018 8:16:13 PM Referred By: Confirmed By:Jian Iniguez
--- NOTE | 2018-09-24 20:17 | CPEKG ---
Test Reason : OPEN Blood Pressure : / mmHG Vent. Rate : 083 BPM Atrial Rate : 000 BPM P-R Int : 225 ms QRS Dur : 153 ms QT Int : 449 ms P-R-T Axes : 225 -21 -03 degrees QTc Int : 528 ms Junctional rhythm Right bundle branch block Confirmed by Jian Iniguez ([id number]) on 09/24/2018 8:16:49 PM Referred By: Confirmed By:Jian Iniguez
[2018-09-24] MEDS: ATORVASTATIN CALCIUM 20 MG TAB PO SCH (21:12)
[2018-09-24] MEDS: GABAPENTIN 300 MG CAP PO SCH (21:12)
[2018-09-25] MEDS: ACETAMINOPHEN 500 MG TAB PO PRN (06:10)
--- NOTE | 2018-09-25 07:05 | SOAPPROG ---
SOAP Progress Note Assessment/Plan: POD#3: CABG x3 (AVILA-LAD, SVG-D2, SVG-OM1), AVR with #27 Magna bioprosthesis, EVH left thigh CAD with severe left main stenosis - s/p CABGx3 -On ASA and Lipitor. No BB to avoid hypotension and conduction issues - CTs to be removed Aortic stenosis/insufficiency with bicuspid aortic valve - s/p tissue AVR - continue ASA Polymorphic VT/Torsades arrest s/p defib x 1 on 09/24 - Patient was defibrillated once with immediate recovery. Chest compressions not performed. - Cardiology evaluated patient and recommends ICD placement prior to discharge - Dr. Abarca to discuss - Echo: no wall motion abnormality, mild MR/TR, bioprosthetic well-functioning, no pericardial effusion Paroxysmal Afib/Aflutter s/p Aflutter ablation 2014 - Currently in an accelerated junctional rhythm with adequate BP - BB contraindicated d/t JR - On Eliquis preop - will restart pending AICD decision - Keep PW SHANIQUE on CPAP - Stable no issues Acute blood loss anemia - Stable Acute kidney injury -secondary to hypotension - Resolved, monitor AMS changes/Hx of speech and balance problems - Patient with improvement this morning - Continue supportive care DVT prophylaxis - SCDs only Subjective: Memory coming back although still unaware of events. Thinks it is year 2012. Objective: Vital Signs Temp Pulse Resp BP Pulse Ox 36.7 C 72 18 104/64 96 09/25/18 06:00 09/25/18 06:00 09/25/18 06:00 09/25/18 06:00 09/25/18 06:00 Laboratory Results 09/24/18 03:50 09/24/18 19:30 09/24/18 09/25/18 09/26/18 05:59 05:59 05:59 Intake Total 2280.5 2636 Output Total 995 705 Balance 1285.5 1931 PT 13.6 SEC (12.0-15.0) 09/20/18 13:31 INR 1.02 (0.83-1.16) 09/20/18 13:31 Physical Exam - Physical Exam General Appearance: alert, No mild distress EENT: No scleral icterus (R), No scleral icterus (L) Neck: normal inspection Respiratory: No respiratory distress Cardiac/Chest: other (JR) Abdomen: non-tender, soft, No distended Skin: normal color, warm/dry Extremities: No pedal edema Neuro/Psych: no motor/sensory deficits, alert, cognition abnormalities, No oriented x 3 ICD10 Worksheet Patient Problems: Problems Problem Status Onset Acute blood loss as cause of postoperative anemia Acute CAD (coronary artery disease) Acute S/P AVR Acute S/P CABG x 3 Acute Atrial flutter Acute HTN (hypertension) Acute Osteoarthritis of right knee Acute Word finding difficulty Acute
[2018-09-25] MEDS: SENNOSIDES/DOCUSATE SODIUM TAB PO SCH ×2 (09:20→20:46)
[2018-09-25] MEDS: ASPIRIN 81 MG CHEWABLE TAB PO SCH (09:20)
[2018-09-25] MEDS: FAMOTIDINE 20 MG TAB PO SCH (09:20)
[2018-09-25] MEDS: CHOLECALCIFEROL VIT D3 1,000 UNITS TAB PO SCH (09:20)
[2018-09-25] MEDS: GABAPENTIN 300 MG CAP PO SCH ×2 (09:24→20:34)
[2018-09-25] MEDS ORDERED: traMADol 50 MG TAB PO PRN (10:27)
[2018-09-25] MEDS ORDERED: ALBUMIN 5% 250 ML BOTTLE IV ONE (11:06)
--- NOTE | 2018-09-25 11:39 | NEUROPROG ---
Assessment: HOSPITAL NEUROLOGY CONSULT REQUESTING: RONALDO Toscano REASON: encephalopathy HPI: 78 year old man with a history of afib/aflutter, aortic stenosis, CAD who was admitted 09/20 for cardiac cath, which revealed 3 vessel disease and on 09/22 he had CABG with AVR. On 09/24 he had an episode of vfib which was rapdily intervened upon with cardioversion - no chest compression/meds needed and he was awake and alert after the event. However, since the event he's been experiencing language dysfunction and confusion. His is at bedside and states the patient had an episode of language dysfunction about 3 years back which was related to an episode of aflutter, but stroke workup was reportedly negative. He has been functioning well since that point per her report. However, she notes the patient is still left with profound aphasia today, though improved since yesterday. ROS: As per the HPI, otherwise a complete 12 point ROS was performed and is negative ALLERGIES AND MEDS: As recorded in the EMR - reviewed and reconciled PFSH: As per the consultation by Dr. Sandoval from yesterday EXAM: VS reviewed in EMR GEN: WDWN laying in NAD HEENT: NCAT, sclera anicteric, conjunctiva not injected, MMM, oropharynx clear, no scalp tenderness NECK: supple, nontender, no meningismus CV: RRR wo m/r/c/g. Carotid pulses 2+ wo bruit NEURO: MS: awake, alert, oriented to all spheres. Speech nondysarthric. He has expressive>receptive aphasia. Follows commands with some prompting. Attends to both sides. Episoic/recent memory impairment, though this may be compounded by his aphasia. Mood euthymic. Good fund of knowledge. CN: pupils 3mm round and reactive. Unable to visualize fundi. VFF. Primary gaze centered. Full ocular motility. Facial sensation preserved. Face symmetric. Hearing grossly intact to finger rub. Palatoglossal movements intact. Shoulder shrug and head turn strong. MOTOR: normal bulk/tone. No adventitial movements. Full power throughout. SENSORY: intact LT/PP in the extremities. No extinction. COORD: no ataxia FN/HS. Akil preserved. REFLEX: plantars down. No clonus. DTRS 2/4. GAIT: deferred DATA REVIEW: Labs reviewed in EMR PERSONALLY INTERPRETED RESULTS AND DATA: Nil IMPRESSION AND RECOMMENDATIONS: // APHASIA // ENCEPHALOPATHY Patient with improving encephalopathy/aphasia after Vfib event. Likely his recently being on CPB, anesthesia put him at risk for encephalopathy, and the brief vfib arrest resulted in some mild hypoxic/ischemic brain injury. We reviewed how even the briefest arrest can cause global cerebral damage. A focal dominant hemisphere stroke cannot be excluded, though. He cannot have MRI brain due to his V-pace wires, and it is anticipated he will be transitioned right from V-pace wires to AICD. Will get CT head wo to eval for large stroke/bleed. Ongoing vascular risk factor optimization per the CV/primary teams. If no evidence of large stroke on CT, can transition to AC when medically safe per CV teams. ETHANOL MAINTENANCE MECHANIC to eval. He will need follow up in neuro clinic and referral to neuropsych if symptoms persist. Will follow up on CT. In interim, continue to exercise delirium precaustions. Objective: Vital Signs Temp Pulse Resp BP Pulse Ox 36.7 C 75 18 127/49 H 95 09/25/18 10:00 09/25/18 10:00 09/25/18 10:00 09/25/18 10:00 09/25/18 10:00 Laboratory Results 09/24/18 03:50 09/24/18 19:30 09/24/18 09/25/18 09/26/18 05:59 05:59 05:59 Intake Total 2280.5 2636 Output Total 995 705 Balance 1285.5 1931 PT 13.6 SEC (12.0-15.0) 09/20/18 13:31 INR 1.02 (0.83-1.16) 09/20/18 13:31 Allergies/Adverse Reactions: mold Allergy (Verified 07/22/15 17:33)
[2018-09-25] MEDS ORDERED: ALBUMIN 5% 250 ML IV ONE ×2 (12:00→14:30)
--- NOTE | 2018-09-25 13:49 | CPEKG ---
Test Reason : OPEN Blood Pressure : / mmHG Vent. Rate : 068 BPM Atrial Rate : 149 BPM P-R Int : 085 ms QRS Dur : 156 ms QT Int : 494 ms P-R-T Axes : 000 050 -15 degrees QTc Int : 526 ms Atrial fibrillation Right bundle branch block Confirmed by Sulaiman King ([id number]) on 09/25/2018 1:48:42 PM Referred By: Confirmed By:Sulaiman King
--- NOTE | 2018-09-25 14:34 | PDINTPN ---
Splitting Machine Operator Progress Note Assessment/Plan: Assessment: S/P CABG x 3, AVR 09/22/18 S/P polymorphic VT arrest 09/24/18: Quickly defibrillated. ? cause, no obvious medication causes. Aphasia: Since VF arrest. Improved, but still significant SHANIQUE: Untreated. Having witnessed sleep apnea here in the hospital. Plan: ST evaluation. Neurology has seen, recommended CT head. Melatonin qHS. CPAP with sleep. 09/25/18 14:34 Subjective: Feels OK, denies pain. Has some productive cough. Slept poorly last night, has napped today. Objective: Vital Signs Temp Pulse Resp BP Pulse Ox 36.7 C 81 22 H 94/46 L 99 09/25/18 12:00 09/25/18 14:00 09/25/18 14:00 09/25/18 14:00 09/25/18 14:00 Laboratory Results 09/24/18 03:50 09/24/18 19:30 09/24/18 09/25/18 09/26/18 05:59 05:59 05:59 Intake Total 2280.5 2636 Output Total 995 705 Balance 1285.5 1931 PT 13.6 SEC (12.0-15.0) 09/20/18 13:31 INR 1.02 (0.83-1.16) 09/20/18 13:31 Physical Exam - Physical Exam General Appearance: alert, no apparent distress EENT: normal ENT inspection Neck: normal inspection Respiratory: crackles Cardiac/Chest: regular rate, rhythm, No edema Abdomen: normal bowel sounds, non-tender Skin: normal color, warm/dry Extremities: non-tender Neuro/Psych: alert, normal mood/affect, oriented x 3, speech abnormalities ( expressive aphasia) ICD10 Worksheet Patient Problems: Problems Problem Status Onset Acute blood loss as cause of postoperative anemia Acute CAD (coronary artery disease) Acute S/P AVR Acute S/P CABG x 3 Acute Atrial flutter Acute HTN (hypertension) Acute Osteoarthritis of right knee Acute Word finding difficulty Acute
--- NOTE | 2018-09-25 14:57 | SOAPPROG ---
ERNIE Progress Note Assessment/Plan: Assessment: 78-year-old male currently 3 days postoperative from 3 vessel bypass surgery which was performed in conjunction with placement of a bioprosthetic aortic valve. Historically, he has had a normal ejection fraction. A bedside echocardiogram was done today which confirms a normal ejection fraction. Earlier today he developed hemodynamically unstable polymorphic VT in the setting of a prolonged QT interval. This appears to be consistent with torsade de [place]. It appears that this was triggered by a PVC. Following a single defibrillation appears to be doing well. He is currently in an accelerated junctional rhythm. He has had a history of sick sinus syndrome. Postoperatively there have been documented episodes of complete heart block as well as episodes of atrial fibrillation. 09/25/2018: He has been stable overnight. In reviewing his ECG this demonstrates atrial fibrillation with a right bundle branch block. His QTC continues to be prolonged. In reviewing his medications it appears that the only potential culprits are Reglan, Pepcid and a dancer drawn. Fortunately he has not had any further ventricular arrhythmias. Plan: 1. Neurology has been consulted. 2. I would recommend implantation of a dual-chamber pacemaker/ICD prior to hospital discharge. This can be done later in this hospitalization depending on his neurologic progress over the next several days. 3. I did stop his Pepcid, Reglan and low density drawn. 4. If approved by cardiothoracic surgery I think we should start him on Lovenox at a weight based dosed twice daily pending a decision regarding device therapy. 5. We will follow along with you. Subjective: He has been stable overnight. No further ventricular arrhythmias have been noted. He is in atrial fibrillation currently. He continues to manifest symptoms of word-finding difficulties and confusion. Objective: Vital Signs Temp Pulse Resp BP Pulse Ox 36.7 C 81 22 H 94/46 L 99 09/25/18 12:00 09/25/18 14:00 09/25/18 14:00 09/25/18 14:00 09/25/18 14:00 Laboratory Results 09/24/18 03:50 09/24/18 19:30 09/24/18 09/25/18 09/26/18 05:59 05:59 05:59 Intake Total 2280.5 2636 Output Total 995 705 Balance 1285.5 1931 PT 13.6 SEC (12.0-15.0) 09/20/18 13:31 INR 1.02 (0.83-1.16) 09/20/18 13:31 Physical Exam - Physical Exam General Appearance: WD/WN, no apparent distress, other (He has word-finding difficulties and is not oriented) Neck: non-tender, full range of motion Respiratory: lungs clear, No crackles, No rales, No rhonchi Cardiac/Chest: normal peripheral pulses, No regular rate, rhythm (Irregularly irregular), No edema, No gallop, No JVD Peripheral Pulses: 2+: carotid (R), carotid (L) ICD10 Worksheet Patient Problems: Problems Problem Status Onset Acute blood loss as cause of postoperative anemia Acute CAD (coronary artery disease) Acute S/P AVR Acute S/P CABG x 3 Acute Atrial flutter Acute HTN (hypertension) Acute Osteoarthritis of right knee Acute Word finding difficulty Acute
[2018-09-25] MEDS: ATORVASTATIN CALCIUM 20 MG TAB PO SCH (20:34)
[2018-09-25] MEDS: CEPACOL LOZENGE PO PRN ×2 (20:34→23:41)
[2018-09-25] MEDS: MELATONIN 3 MG TAB PO SCH (20:35)
[2018-09-25] MEDS: ENOXAPARIN 100 MG/ML SYR SC SCH (20:35)
[2018-09-26] MEDS ORDERED: HALOPERIDOL LACT 5 MG/ML INJ IVP ONE (03:45)
[2018-09-26] MEDS: GUAIFENESIN/DM 10 ML UDCUP PO PRN ×2 (03:56→20:14)
[2018-09-26] MEDS: BENZONATATE 100 MG CAP PO PRN (03:56)
[2018-09-26] MEDS ORDERED: HALOPERIDOL LACT 5 MG/ML INJ IV ONE (06:30)
[2018-09-26 07:02] LABS: PLATELET COUNT 122 10^3/uL (150-400)
--- NOTE | 2018-09-26 07:56 | SOAPPROG ---
SOAP Progress Note Assessment/Plan: POD#4: CABG x3 (AVILA-LAD, SVG-D2, SVG-OM1), AVR with #27 Magna bioprosthesis, EVH left thigh CAD with severe left main stenosis - s/p CABGx3 - On ASA and Lipitor. BB contraindicated (hypotension and conduction issues) - CTs Out Aortic stenosis/insufficiency with bicuspid aortic valve - s/p tissue AVR - continue ASA Polymorphic VT/Torsades arrest s/p defib x 1 on 09/24 with ROSC - Cardiology evaluated patient and plan is for ICD placement prior to discharge - Echo after arrest: no wall motion abnormality, mild MR/TR, bioprosthetic well- functioning, no pericardial effusion Paroxysmal Afib/Aflutter s/p Aflutter ablation 2014 - Rhythm: AF, bradycardia, JR, SR - BB contraindicated - On Eliquis preop, therapeutic Lovenox started, will continue Eliquis pending AICD decision - Keep PW with VVI backup Post-op hypoxic respiratory insufficiency - PO2 on ABG last night 42 - continue BiPap - Start Lasix ?SHANIQUE - As per pulmonology Acute blood loss anemia - H/H lower this AM - Will consider PRBC if BP low Acute kidney injury -secondary to hypotension - Resolved, monitor AMS changes/delirium with Hx of speech and balance problems - CT head negative for acute CVA - Continue supportive care DVT prophylaxis - SCDs Subjective: Confused. Objective: Vital Signs Temp Pulse Resp BP Pulse Ox 36.6 C 62 20 121/47 H 100 09/26/18 04:00 09/26/18 06:20 09/26/18 06:20 09/26/18 06:00 09/26/18 06:20 Laboratory Results 09/26/18 06:35 09/26/18 06:35 09/25/18 09/26/18 09/27/18 05:59 05:59 05:59 Intake Total 2636 1200 Output Total 705 875 Balance 1931 325 PT 13.6 SEC (12.0-15.0) 09/20/18 13:31 INR 1.02 (0.83-1.16) 09/20/18 13:31 Physical Exam - Physical Exam General Appearance: alert, mild distress, anxiety EENT: No scleral icterus (R), No scleral icterus (L) Neck: normal inspection Respiratory: respiratory distress Cardiac/Chest: bradycardia, extra beats, irregularly irregular Abdomen: non-tender, soft, No distended Skin: normal color, warm/dry Extremities: No pedal edema Neuro/Psych: alert, cognition abnormalities, speech abnormalities, disoriented to person, disoriented to place, disoriented to time ICD10 Worksheet Patient Problems: Problems Problem Status Onset Acute blood loss as cause of postoperative anemia Acute CAD (coronary artery disease) Acute S/P AVR Acute S/P CABG x 3 Acute Atrial flutter Acute HTN (hypertension) Acute Osteoarthritis of right knee Acute Word finding difficulty Acute
[2018-09-26] MEDS ORDERED: FUROSEMIDE 40 MG/4 ML VIAL IVP ONE ×2 (08:06→15:04)
[2018-09-26] MEDS ORDERED: POTASSIUM Cl (KCl) 50 ML IV ONE ×2 (08:07→08:08)
[2018-09-26] MEDS: CHOLECALCIFEROL VIT D3 1,000 UNITS TAB PO SCH (08:46)
[2018-09-26] MEDS: ASPIRIN 81 MG CHEWABLE TAB PO SCH (08:46)
[2018-09-26] MEDS: GABAPENTIN 300 MG CAP PO SCH ×2 (08:46→20:13)
[2018-09-26] MEDS: SENNOSIDES/DOCUSATE SODIUM TAB PO SCH ×2 (08:47→20:13)
[2018-09-26] MEDS: ENOXAPARIN 100 MG/ML SYR SC SCH ×2 (08:47→20:13)
--- NOTE | 2018-09-26 09:52 | PDINTPN ---
[employer] Progress Note Assessment/Plan: Assessment: S/P CABG x 3, AVR 09/22/18 S/P polymorphic VT arrest 09/24/18: Quickly defibrillated. ? cause, no obvious medication causes. Aphasia: Since VF arrest. Improved, but still significant SHANIQUE: Untreated. Having witnessed sleep apnea here in the hospital. May be having central sleep apnea in addition to obstructive sleep apnea. Delirium: Patient had agitated delirium with hallucinations last night. Improved with Haldol. Untreated sleep apnea may contribute. Plan: ST evaluation for aphasia. Melatonin qHS. For delirium: Stimulation, frequent reorientation, family () engagement, and increased activity throughout the day with short naps as necessary. Melatonin and Haldol at bedtime. CPAP with sleep, including naps. 09/26/18 09:50 Subjective: Speech a bit more fluent today. Denies pain. Feels tired, weak. Objective: Vital Signs Temp Pulse Resp BP Pulse Ox 36.6 C 63 20 112/40 L 97 09/26/18 08:00 09/26/18 08:00 09/26/18 08:00 09/26/18 08:00 09/26/18 08:00 Laboratory Results 09/26/18 06:35 09/26/18 06:35 09/25/18 09/26/18 09/27/18 05:59 05:59 05:59 Intake Total 2636 1200 Output Total 705 875 Balance 1931 325 PT 13.6 SEC (12.0-15.0) 09/20/18 13:31 INR 1.02 (0.83-1.16) 09/20/18 13:31 CT head: No acute hemorrhage. Images reviewed by me Physical Exam - Physical Exam General Appearance: alert, no apparent distress EENT: normal ENT inspection Neck: normal inspection Respiratory: lungs clear Cardiac/Chest: regular rate, rhythm, No edema Abdomen: normal bowel sounds, non-tender Skin: normal color, warm/dry Extremities: normal inspection Neuro/Psych: alert, normal mood/affect, oriented x 3 ICD10 Worksheet Patient Problems: Problems Problem Status Onset Acute blood loss as cause of postoperative anemia Acute CAD (coronary artery disease) Acute S/P AVR Acute S/P CABG x 3 Acute Atrial flutter Acute HTN (hypertension) Acute Osteoarthritis of right knee Acute Word finding difficulty Acute
[2018-09-26] MEDS: ATORVASTATIN CALCIUM 20 MG TAB PO SCH (20:13)
[2018-09-26] MEDS: MELATONIN 3 MG TAB PO SCH (20:13)
[2018-09-26] MEDS: CEPACOL LOZENGE PO PRN (20:13)
[2018-09-26] MEDS ORDERED: HALOPERIDOL 5 MG TAB PO ONE (21:00)
[2018-09-27] MEDS: GUAIFENESIN/DM 10 ML UDCUP PO PRN ×3 (05:27→22:21)
--- NOTE | 2018-09-27 06:39 | SOAPPROG ---
SOAP Progress Note Assessment/Plan: Assessment: POD#4 CABG x3 (AVILA-LAD, SVG-D2, SVG-OM1), AVR with #27 Magna bioprosthesis, EVH left thigh CAD with severe left main stenosis - s/p CABGx3 - On ASA and Lipitor. No BB to avoid hypotension and conduction issues - CTs out BAV with stenosis/insufficiency - s/p tissue AVR - antithrombotic prophylaxis w ASA Polymorphic VT/Torsades arrest s/p defib x 1 on 09/24 - Patient was defibrillated once with immediate recovery. Chest compressions not performed. - Cardiology evaluated patient and recommends ICD placement prior to discharge - Dr. Abarca to discuss - Echo: no wall motion abnormality, mild MR/TR, bioprosthetic well-functioning, no pericardial effusion Paroxysmal Afib/Aflutter s/p Aflutter ablation 2014 - Currently Vpaced 80 for underlying rhythm CHB - Cards to see for PPM SHANIQUE on CPAP - Stable no issues Acute blood loss anemia - Stable - DVT prophylaxis w SCDs alone Acute kidney injury -secondary to hypotension - Resolved, monitor Postoperative deliurium - AMS changes/Hx of speech and balance problems - Steady resolution with supportive care Plan: NPO for possible dual chamber ICD today. Inc activity as tolerated 09/27/18 06:36 Subjective: Comfortable. Up ambulating yest. Restorative sleep. Getting memory back. Objective: Vital Signs Temp Pulse Resp BP Pulse Ox 36.5 C 80 17 136/72 H 98 09/27/18 05:36 09/27/18 05:36 09/27/18 05:36 09/27/18 05:36 09/27/18 05:36 Laboratory Results 09/27/18 05:45 09/27/18 05:45 09/26/18 09/27/18 09/28/18 05:59 05:59 05:59 Intake Total 1200 2000 Output Total 875 2000 Balance 325 0 PT 13.6 SEC (12.0-15.0) 09/20/18 13:31 INR 1.02 (0.83-1.16) 09/20/18 13:31 Vpaced for CHB w variable escape. Quiet night on BiPAP. Min suppl O2 req. Adequate fluid balance. Physical Exam - Physical Exam General Appearance: alert, no apparent distress Respiratory: lungs clear (grossly), other (CT dressing CDI) Cardiac/Chest: regular rate, rhythm, other (Sternotomy CDI. Vwires intact) Abdomen: non-tender, soft Skin: warm/dry Extremities: other (no visible leg edema) ICD10 Worksheet Patient Problems: Problems Problem Status Onset Acute blood loss as cause of postoperative anemia Acute CAD (coronary artery disease) Acute S/P AVR Acute S/P CABG x 3 Acute Atrial flutter Acute HTN (hypertension) Acute Osteoarthritis of right knee Acute Word finding difficulty Acute
[2018-09-27] MEDS: CEPACOL LOZENGE PO PRN (07:57)
[2018-09-27] MEDS: GABAPENTIN 300 MG CAP PO SCH ×2 (07:57→20:41)
[2018-09-27] MEDS: ASPIRIN 81 MG CHEWABLE TAB PO SCH (08:45)
[2018-09-27] MEDS: CHOLECALCIFEROL VIT D3 1,000 UNITS TAB PO SCH (08:45)
[2018-09-27] MEDS: BENZONATATE 100 MG CAP PO PRN ×2 (09:01→21:30)
--- NOTE | 2018-09-27 11:03 | CPEKG ---
Test Reason : OPEN Blood Pressure : / mmHG Vent. Rate : 054 BPM Atrial Rate : 082 BPM P-R Int : 371 ms QRS Dur : 151 ms QT Int : 570 ms P-R-T Axes : 058 -12 010 degrees QTc Int : 541 ms Complete AV block with wide QRS complex Right bundle branch block Confirmed by Sulaiman King ([id number]) on 09/27/2018 11:02:33 AM Referred By: Confirmed By:Sulaiman King
--- NOTE | 2018-09-27 12:25 | ASMTCMCOM ---
CM Note CM Note Notes: Pt admitted for CABG x3, with code blue event two days later; Pt having pacer with defibrillator placed today. PT now recommending home independently with outpatient cardiac rehab. Spoke with pt's who is a little nervous about that plan, but willing to wait and see. CM to follow. D/C Plan: Home with OP Cardia Rehab vs [facility] Date Signed: 09/27/2018 12:24 PM Electronically Signed By:Marge Dewitt
[2018-09-27] MEDS ORDERED: BACITRACIN IRRIGATION/NS 50,000 UNITS/1,000 ML BTL IRR ONE (13:00)
[2018-09-27] MEDS ORDERED: ceFAZolin 2 GM/DEXTROSE 100 ML IV ONE (13:00)
[2018-09-27] MEDS ORDERED: LIDOCAINE 1% 300 MG/30 ML SDV ONE (13:10)
[2018-09-27] MEDS ORDERED: IOPAMIDOL (ISOVUE-300) 50 ML VIAL ONE (13:10)
[2018-09-27] MEDS ORDERED: BUPIVACAINE 0.5% 30 ML SDV ONE (13:11)
[2018-09-27] MEDS ORDERED: fentaNYL 100 MCG/2 ML INJ ONE ×2 (13:11→14:42)
[2018-09-27] MEDS ORDERED: MIDAZOLAM 2 MG/2 ML VIAL ONE ×2 (13:11→14:43)
[2018-09-27] MEDS ORDERED: LIDO/EPI 1% **for epidural** 30 ML SDV ONE (13:11)
[2018-09-27] MEDS: POTASSIUM Cl (KCl) 100 ML IV SCH (13:20)
--- NOTE | 2018-09-27 15:37 | CPIP ---
DATE OF PROCEDURE: 09/27/2018 INDICATIONS: The patient is 78 years old. He has a history of coronary and valvular heart disease. On day 3 postoperative from coronary artery bypass graft surgery, which was performed in conjunction with aortic valve replacement, he suffered a cardiac arrest with polymorphic ventricular tachycardia . He is referred for ICD implantation for secondary prevention. Additionally, he has a history of p aroxysmal atrial fibrillation with sick sinus syndrome and episodes of 2:1 heart block. Postoperativ jessika, he has had intermittent complete heart block. PROCEDURE: Implantation of a dual-chamber implantable cardioverter defibrillator. TECHNIQUE: Following informed consent and in the fasting state, the patient was brought to the [facility] catheterization laboratory. The patient was administered 2 g of Ancef prior to the procedure. A time-out was performed. The left chest was prepped and draped in usual sterile fashion. 2% lidocain e was infiltrated in the skin below the left clavicle. A venogram was performed identifying a widely patent axillary subclavian system. Using the #10 blade , a 4 cm incision was made inferior and parallel to the clavicle. Using blunt dissection, the ICD po cket was fashioned. Using 2 separate sticks in the Seldinger technique, access was gained to the axi llary vein at the level of the first rib. 2 individual 0.035 J-wires were then positioned under fluo roscopic fluoroscopy and visualized in the superior vena cava. Using the first of these J-wires, a 7-Yakut sheath was placed. This allowed us to pass the high-vol tage right ventricular lead into the right ventricular apex. The sheath was torn away and the lead s crewed into place. The lead was then secured to the ICD pocket floor with 0 Ethibond. Using remaini ng J-wire, an 8-Yakut sheath was placed. The atrial lead was brought to the field and passed in the right atrial appendage where it was screwed into place. The sheath was torn away. The lead was the n secured to the ICD pocket floor with 0 Ethibond. At this point, the antibiotic soaked sponge was removed from the ICD pocket. The ICD pocket was then irrigated with antibiotic-containing solution. The pocket was visualized. All bleeders were then c auterized. All leads were identified by serial number and affixed to the head of the new device acco rding to associate professor of musicology guidelines. The device was then placed in the ICD pocket, along with a redunda nt portions of all leads. The pocket was then closed initially with 2 layers of interrupted suture u sing 2-0 and 3-0 Vicryl, and finally running Stratafix for the skin. Steri-Strips and a dry dressing were applied. COMPLICATIONS: None DEVICE INFORMATION: The device is a [employer] dual-chamber ICD Radha Talbert DR, reference # [id number], serial #[id number]. The right ventricular lead is a [employer] Durata, reference #[id number], serial #[id number]. In the atrium, the lead is a [employer] Tendril MRI compatible lead, reference #[id number], 52 cm in length, serial #[id number]. In the ventricle, capture was 0.3 V at 0.5 msec with sensed R-wave of 7.3 mV, lead impedance of 463 ohms. In the atrium, the patient was noted to be in atrial flutter with sensed flutter waves 1.6 mV and a lead impedance of 381 ohms. DISPOSITION: The patient will be transferred back to the ICU where care will be resumed by Cardiotho racic Surgery. /[id number]/MODL
--- NOTE | 2018-09-27 16:15 | PDINTPN ---
[employer] Progress Note Assessment/Plan: Assessment: S/P CABG x 3, AVR 09/22/18 S/P polymorphic VT arrest 09/24/18: Quickly defibrillated. ? cause, no obvious medication causes. Had ICD placed this afternoon Aphasia: Since VF arrest. Improving daily. CT scan of the head was negative. SHANIQUE: Untreated. Having witnessed sleep apnea here in the hospital. May be having central sleep apnea in addition to obstructive sleep apnea. Delirium: Patient had agitated delirium with hallucinations 11/12 pm. Improved with Haldol. Untreated sleep apnea may contribute. Plan: ST evaluation for aphasia. Melatonin qHS. For delirium: Stimulation, frequent reorientation, family () engagement, and increased activity throughout the day with short naps as necessary. Melatonin and Haldol at bedtime. BiPAP with sleep, including naps. 09/27/18 16:13 Subjective: Slept fairly well last night, tolerated BiPAP. More alert and less confused today. Speech more fluent. Objective: Vital Signs Temp Pulse Resp BP Pulse Ox 36.9 C 70 17 99/59 L 94 09/27/18 12:00 09/27/18 15:48 09/27/18 15:48 09/27/18 15:48 09/27/18 15:48 Laboratory Results 09/27/18 05:45 09/27/18 05:45 09/26/18 09/27/18 09/28/18 05:59 05:59 05:59 Intake Total 1200 2000 400 Output Total 875 2000 460 Balance 325 0 -60 PT 13.6 SEC (12.0-15.0) 09/20/18 13:31 INR 1.02 (0.83-1.16) 09/20/18 13:31 Physical Exam - Physical Exam General Appearance: alert, no apparent distress EENT: normal ENT inspection Neck: normal inspection Respiratory: lungs clear, normal breath sounds, No respiratory distress Cardiac/Chest: regular rate, rhythm, No edema Abdomen: normal bowel sounds, non-tender Skin: normal color, warm/dry Extremities: normal inspection Neuro/Psych: alert, normal mood/affect, oriented x 3 ICD10 Worksheet Patient Problems: Problems Problem Status Onset Acute blood loss as cause of postoperative anemia Acute CAD (coronary artery disease) Acute S/P AVR Acute S/P CABG x 3 Acute Atrial flutter Acute HTN (hypertension) Acute Osteoarthritis of right knee Acute Word finding difficulty Acute
[2018-09-27] MEDS: ATORVASTATIN CALCIUM 20 MG TAB PO SCH (20:41)
[2018-09-27] MEDS: MELATONIN 3 MG TAB PO SCH (20:41)
[2018-09-27] MEDS: ACETAMINOPHEN 500 MG TAB PO PRN (23:55)
--- NOTE | 2018-09-28 07:35 | SOAPPROG ---
SOAP Progress Note Assessment/Plan: POD#6: CABG x3 (AVILA-LAD, SVG-D2, SVG-OM1), AVR with #27 Magna bioprosthesis, EVH left thigh POD #1: [employer] A/V AICD placement, LINQ removal CAD with severe left main stenosis - s/p CABGx3 - On ASA and Lipitor - Possible start of BB now that pacer is placed and BP has recovered - CTs/wires out Aortic stenosis/insufficiency with bicuspid aortic valve - s/p tissue AVR - continue ASA Polymorphic VT/Torsades arrest s/p defib x 1 on 09/24 with ROSC - s/p AICD - Echo after arrest: no wall motion abnormality, mild MR/TR, bioprosthetic well- functioning, no pericardial effusion Paroxysmal Afib/Aflutter s/p Aflutter ablation 2014 - Rhythm: AF, bradycardia, JR, SR - BB as per CAD - CHADS-VASC 7 - on Eliquis preop, therapeutic Lovenox used until AICD placed, will as per cardiology - V-wire removed Post-op hypoxic respiratory insufficiency with h/o SHANIQUE - PO2 improved - Daily Lasix started h/o SHANIQUE on CPAP, non-compliant - to bring CPAP from home and will have pulmonology prescribe settings Acute blood loss anemia - No signs of bleeding, follow Acute kidney injury -secondary to hypotension - Resolved AMS changes/delirium with Hx of speech and balance problems - CT head negative for acute CVA - Improvement with supportive care DVT prophylaxis - SCDs Subjective: Feels well. Has a productive cough. Memory has improved. Objective: Vital Signs Temp Pulse Resp BP Pulse Ox 36.8 C 70 15 140/75 H 100 09/28/18 04:00 09/28/18 04:00 09/28/18 04:00 09/28/18 04:00 09/28/18 04:00 Laboratory Results 09/28/18 05:20 09/28/18 05:20 09/27/18 09/28/18 09/29/18 05:59 05:59 05:59 Intake Total 1999 1196 Output Total 1999 1180 Balance 0 16 PT 13.6 SEC (12.0-15.0) 09/20/18 13:31 INR 1.02 (0.83-1.16) 09/20/18 13:31 Physical Exam - Physical Exam General Appearance: WD/WN, alert, no apparent distress EENT: No scleral icterus (R), No scleral icterus (L) Neck: normal inspection Respiratory: chest non-tender, other (cough) Cardiac/Chest: other (paced) Abdomen: non-tender, soft, No distended Skin: normal color, warm/dry Extremities: pedal edema Neuro/Psych: no motor/sensory deficits, alert, normal mood/affect, oriented x 3 ICD10 Worksheet Patient Problems: Problems Problem Status Onset Acute blood loss as cause of postoperative anemia Acute CAD (coronary artery disease) Acute S/P AVR Acute S/P CABG x 3 Acute Atrial flutter Acute HTN (hypertension) Acute Osteoarthritis of right knee Acute Word finding difficulty Acute
[2018-09-28] MEDS: CHOLECALCIFEROL VIT D3 1,000 UNITS TAB PO SCH (07:53)
[2018-09-28] MEDS: GABAPENTIN 300 MG CAP PO SCH ×2 (07:53→20:05)
[2018-09-28] MEDS: ASPIRIN 81 MG CHEWABLE TAB PO SCH (07:53)
[2018-09-28] MEDS: ACETAMINOPHEN 500 MG TAB PO PRN ×2 (08:10→20:06)
[2018-09-28] MEDS: SENNOSIDES/DOCUSATE SODIUM TAB PO PRN ×2 (08:10→20:05)
[2018-09-28] MEDS: FUROSEMIDE 40 MG TAB PO SCH (11:04)
[2018-09-28] MEDS: POTASSIUM CL 20 MEQ TAB PO SCH (11:05)
[2018-09-28] MEDS: CARVEDILOL 3.125 MG TAB PO SCH ×2 (11:05→18:41)
[2018-09-28] MEDS: guaiFENesin 600 MG TAB.ER PO SCH ×2 (11:05→20:06)
--- NOTE | 2018-09-28 12:23 | PDCARPN ---
Cardiology Progress Note Chief Complaint: s/p AICD Assessment/Plan: Assessment/Plan: Cameron is a 78 y/o M typically followed by Dr. Newell who is s/p 3v CABG and AVR. Post op he developed torsades and is s/p AICD by Dr. Baptiste on 09/27. He is now in a.fib rate controlled with Coreg. He will begin Eliquis today for CVA prophylaxis. He will follow up with Dr. Newell in 3 weeks with a EKG. If he remains in a.fib consider CV at that time. The patient was discussed with Dr. Newell. He refused a CXR this but is now willing to proceed. ICD precautions discussed today. 09/28/18 12:30 Subjective: He denies any significant pain over his ICD site. Objective: Vital Signs (8 Hrs) Temp Pulse Resp BP Pulse Ox 09/28/18 11:14 36.5 C 70 18 113/53 L 95 09/28/18 09:16 88 L 09/28/18 07:48 36.6 C 70 16 109/57 L 94 Intake/Output (24 Hrs) 09/27/18 09/28/18 09/29/18 05:59 05:59 05:59 Intake Total 1999 1196 Output Total 1999 1180 Balance 0 16 Intake: Oral (ml) 2000 450 IV Intake (ml) 400 IV Infused (ml) 346 POTASSIUM Cl (KCl) 100 ml 346 @ 50 mls/hr IV Q2H [facility] Rx#:[id number] Output: Urine (ml) 2000 1180 Catheter 2000 Urinal 1180 Other: Weight 99.3 kg 96.3 kg Intake Quantity Yes Sufficient Output Comment Catheter condom cath Number of Voids Urinal 1 Result Diagrams: 09/28/18 05:20 09/28/18 05:20 Telemetry: a.fib - Physical Exam Constitutional: no apparent distress Cardiovascular: irregularly irregular, other (ICD site is clean intact without infection or hematoma) Skin: no edema, other Neurologic: AAOx3 ICD10 Worksheet Patient Problems: Problems Problem Status Onset Acute blood loss as cause of postoperative anemia Acute CAD (coronary artery disease) Acute S/P AVR Acute S/P CABG x 3 Acute Atrial flutter Acute HTN (hypertension) Acute Osteoarthritis of right knee Acute Word finding difficulty Acute
--- NOTE | 2018-09-28 15:03 | ASMTCMCOM ---
CM Note CM Note Notes: 09/28/2018 Case Management Note Discussed with Joaquin Payne this morning. Anticipating d/c tomorrow or Tuesday. Case Management d/c poc: home with outpatient cardiac rehab. Case Management available if needs change. Date Signed: 09/28/2018 03:02 PM Electronically Signed By:Debbie Vásquez RN
--- NOTE | 2018-09-28 17:05 | CPEKG ---
Test Reason : OPEN Blood Pressure : / mmHG Vent. Rate : 070 BPM Atrial Rate : 000 BPM P-R Int : 059 ms QRS Dur : 173 ms QT Int : 528 ms P-R-T Axes : 000 -75 079 degrees QTc Int : 570 ms Afib/flut and V-paced complexes Confirmed by Sulaiman King ([id number]) on 09/28/2018 5:05:21 PM Referred By: Confirmed By:Sulaiman King
[2018-09-28] MEDS: MELATONIN 3 MG TAB PO SCH (20:05)
[2018-09-28] MEDS: ATORVASTATIN CALCIUM 20 MG TAB PO SCH (20:05)
[2018-09-28] MEDS: APIXABAN 5 MG TAB PO SCH (20:06)
[2018-09-29] MEDS: ACETAMINOPHEN 500 MG TAB PO PRN (07:59)
[2018-09-29] MEDS: GUAIFENESIN/DM 10 ML UDCUP PO PRN (08:01)
[2018-09-29] MEDS: guaiFENesin 600 MG TAB.ER PO SCH (08:01)
[2018-09-29] MEDS: CHOLECALCIFEROL VIT D3 1,000 UNITS TAB PO SCH (08:02)
[2018-09-29] MEDS: CARVEDILOL 3.125 MG TAB PO SCH (08:02)
[2018-09-29] MEDS: ASPIRIN 81 MG CHEWABLE TAB PO SCH (08:02)
[2018-09-29] MEDS: APIXABAN 5 MG TAB PO SCH (08:02)
[2018-09-29] MEDS: FUROSEMIDE 40 MG TAB PO SCH (08:02)
[2018-09-29] MEDS: POTASSIUM CL 20 MEQ TAB PO SCH (08:02)
[2018-09-29] MEDS: GABAPENTIN 300 MG CAP PO SCH (08:03)
--- NOTE | 2018-09-29 08:48 | SOAPPROG ---
SOAP Progress Note Assessment/Plan: Assessment: POD#6 CABG x3 (AVILA-LAD, SVG-D2, SVG-OM1), AVR with #27 Magna bioprosthesis, EVH left thigh POD#2 St Vasile dual chamber ICD placement, LINQ removal CAD with severe left main stenosis - s/p CABGx3 - Secondary prevention w baby ASA, statin, and BB after PPM insertion. - CTs out BAV with stenosis/insufficiency - s/p tissue AVR - antithrombotic prophylaxis w ASA Polymorphic VT/Torsades arrest s/p defib x 1 on 09/24 - Patient was defibrillated once with immediate ROSC. Chest compressions not performed. Echo neg for WMA, sig valv dysfx or pericard effusion. - Secondary prevention with ICD Paroxysmal Afib/Aflutter refractory to prior ablation/chronically anticoagulated with Eliquis - Postop bradyarrhythmias w intermittent CHB and dual chamber PPM/ICD placed - Eliquis resumed for [id number] score of 7. Acute expected blood loss anemia - Stable. No transfusions required. DVT prophylaxis w SCDs and Eliquis Acute kidney injury -secondary to hypotension - Resolved, monitor Postoperative deliurium - AMS changes/Hx of speech and balance problems. No evidence CVA by head CT. - Steady resolution with supportive care Plan: Inc coreg to 6.25 mg BID. Ok for discharge this afternoon. Instructions re diet, meds, activity, wound care and f/u to be reviewed in presence of . 09/29/18 08:47 Subjective: Feels well except for episodic coughing spells. Good appetite. + BM. Min incisional discomfort. Eager for shower and home. 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 Sternotomy and CT sites CDI.) Abdomen: non-tender, soft Skin: warm/dry Extremities: swelling (trace) ICD10 Worksheet Patient Problems: Problems Problem Status Onset Acute blood loss as cause of postoperative anemia Acute CAD (coronary artery disease) Acute S/P AVR Acute S/P CABG x 3 Acute Atrial flutter Acute HTN (hypertension) Acute Osteoarthritis of right knee Acute Word finding difficulty Acute
[2018-09-29] MEDS ORDERED: METOPROLOL TARTRATE 25 MG TAB PO ONE (10:00)
[2018-09-29 11:44] VITALS: BP 124/64
[2018-09-29] MEDS: BENZONATATE 100 MG CAP PO PRN (12:08)
--- NOTE | 2018-09-29 13:15 | PDDCSUM ---
Discharge Summary Discharge Summary: DATE OF ADMISSION: 09/21/18 DATE OF DISCHARGE: 09/29/18 DISPOSITION: Home, self-care PRINCIPAL ADMISSION DIAGNOSIS: Suspected coronary artery disease PRINCIPAL DISCHARGE DIAGNOSES: 1. Severe multivessel coronary artery disease with high grade left main stenosis 2. Stable nonobstructive carotid artery disease 3. Status post coronary artery bypass grafting x 3 4. Status post aortic valve replacement with a bioprosthesis 5. Acute expected blood loss anemia 6. Postoperative paroxysmal atrial fibrillation/flutter 7. Postoperative cardiac arrest due to polymorphic ventricular tachycardia 8. Postoperative delirium 9. Postoperative acute kidney injury 10. Status post implantation of a dual chamber implantable cardioverter defibrillator 11. Status post explantation of LINQ cardiac technologist HISTORY OF PRESENT ILLNESS: 78 yo male with a BAV, mild to moderate /mild AI, dysrhythmias, progressive exertional dyspnea, and an abnormal nuclear stress test demonstrating apical and lateral wall ischemia, admitted for elective coronary angiography. PERTINENT PAST MEDICAL HISTORY: LINQ event monitor for presyncope, periods of Mobitz 1 AVB, PAF/flutter, and NSVT; chronic anticoagulation on Eliquis; possible TIA 2014 with expressive/ receptive aphasia and balance problems; nonobstructive carotid artery disease; anxiety, migraines, GERD, HTN, SHANIQUE on CPAP MEDICATIONS ON ADMISSION: ASA 325 mg daily, Eliquis 5 mg BID, Lipitor 20 mg HS, Fish oil 1,000 mg daily, Valsartan 160 mg daily, Toprol XL 12.5 mg daily, Gabapentin 1,200 mg BID (for anti-anxiety and anti-migraine effects), Vit D3 1,000 units daily, Vit B12 1, 000 mcg daily, Tums 500 mg prn ALLERGIES/SENSITIVITIES: NKDA CONSULTANTS: CV surgery (Tevin), Pulmonology/critical care (Jaiem), Neurology (Snow) PROCEDURES/IMAGIN/7 (Boni): Left heart catheterization with selective coronary angiography. Access via rt common femoral artery. Findings: Rt dominant circulation. 75% distal LM stenosis, 90% mid LAD stenosis, 60% D1 stenosis, GROUP TESTER RI w distal reconstitution by collaterals, 70% ostial LCX stenosis, 40% mid RCA stenosis. 09/20 Carotid US: mild calcific plaquing of bilateral carotid bulbs 09/22 (Ashleigh): Coronary artery bypass grafting x 3 (AVILA-LAD, SV-Dx, SV-OM1). Takedown left internal mammary artery. Endoscopic vein harvest left leg. Aortic valve replacement with a 27 mm Bernardo Magna bovine pericardial bioprosthesis. 09/24 (Winston): Transthoracic echocardiogram: Nl BiV size and systolic fx, nl bioprosthetic AV fx, mild MR, no pericardial effusion. 09/25 CT head: mild atrophy, cerebrovascular atherosclerosis, no acute process. 09/27 (White): Implantation of a St Vasile [employer] Fortify Assura dual chamber ICD. Mode DDD. Lower rate 70 bpm. Explantation of LINQ ICM. ABBREVIATED HOSPITAL COURSE BY ACTIVE PROBLEM LIST: 1. CAD with severe left main stenosis - Revascularized with CABG. Secondary prevention w baby ASA, statin, and BB. 2. BAV with calcific /AI - s/p tissue AVR. Antithrombotic prophylaxis w ASA. 3. Paroxysmal Afib/flutter - Chronically anticoagulated with Eliquis for [id number] -VASc score of 4-6. Early postop bradyarrhythmias w pauses and relative hypotension compl by renal insufficiency (peak Cr 1.5) req IV hydration and transient pressor support. PPM/ICD placed after development of intermittent CHB. BB and Eliquis subsequently resumed. Predominant post PPM rhythm PAF/Fl w Vpacing, no RVR. 4. Polymorphic VT/Torsades arrest - POD#2. ROSC and SR promptly restored with single electrical shock. No chest compressions or antiarrhythmics given. Echo neg for WMA, sig valv dysfx or pericardial effusion. Secondary prevention with ICD. 5. Acute expected blood loss anemia - Stable. No transfusions required. 6. Postoperative encephalopathy/delirium - Exacerbated by arrest, but multifactorial etiology suspected. Head imaging neg for acute/subacute event. Steady improvement with med adjustments and supportive care. No outpt COMPUTER PROGRAMMER needs identified. 7. Postoperative cough - Paroxysms of dry cough. No evidence aspiration/ pneumonitis/pulm edema. DISCHARGE CLINICAL INFORMATION: Sternum grossly stable. Sternotomy CDI, sutured, +Dermabond. HR 60s-70s. SBP 120s. SpO2 93% RA. Wt 2.9 kg above admission at 93.1 kilos. WBC 6.75, Hgb 8.1, HCT 24.8, Plt 151, Na 141, K 4.2, Cr 0.7 DISCHARGE MEDICATIONS: As on admission with the following adjustments: 1. Hold Toprol XL 2. Hold Valsartan 3. Reduce aspirin to 81 mg daily NEW prescriptions: 1. Coreg 6.25 mg BID 2. Lasix 40 mg daily until back to baseline weight and no swelling 3. Klor-Con 20 meq with each 40 mg dose of Lasix 4. Robitussin DM 5-10 ml q 8h prn cough 5. Tessalon Pearles 100 mg TID prn cough 6. Mucinex 600 mg BID prn cough 7. Tramadol 25-50 mg q6hrs prn incisional discomfort FOLLOW UP APPOINTMENTS: 1. CV surgery: with Dr Abarca at [facility] on 10/10 at 9:45 am. 2. Cardiology: with Dr Newell at [facility] on 10/18 at 9:15 am 3. Pacemaker clinic: wound check and device interrogation on 10/04 at 2:30 pm. FOLLOW UP TESTING: CXR prior to surgical appointment.
--- NOTE | 2018-09-29 13:49 | ASDISCHSUM ---
Discharge Information Plan Status:Home with No Needs Medically Cleared to Leave:09/28/2018 Discharge Date:09/28/2018 CM D/C Disposition:Home, Routine, Self-Care ADT D/C Disposition:Home, Routine, Self-Care Projected Discharge Date:09/22/2018 11:00 AM Transportation at D/C:Family Discharge Delay Reason: Follow-Up Date:09/22/2018 11:00 AM Discharge Slot: Final Diagnosis: Placement Information Referral Type:*Home Health Care Services Referral ID:[id number] Provider Name: Address 1: Phone Number: Address 2: Fax Number: City: Selection Factors: State: Patient Contact Information Contact Name:BATSHEVA Relationship: Address:[address] [place] Alternate Phone: State/Zip Code:[place] [address] Email: Financial Information Financial Class:Medicare Advantage Plans Primary Plan Desc:[facility] Primary Plan Number:[id number] Secondary Plan Desc: Secondary Plan Number: Assessment Information LACE LACE Length of stay for Answers: 7-13 days current admission Acuity / Level of Answers: Yes Care: Did the patient have an inpatient admission? Comorbidities - select Answers: Opioid dependence all that apply / Chronic pain Other Notes: HTN; AFlutter # of Emergency department Answers: 1-2 visits in the last 6 months Score: 14 Date Signed: 09/29/2018 01:23 PM Electronically Signed By:LAURA Matthews [facility] Progress Note CM Lázaro GOLD Note Notes: Pt is a 78 y/o man admitted for CAD. Pt will most likely d/c independent when medically stable. No therapies ordered at this time. CM available for changes. Plan: Independent Date Signed: 09/21/2018 03:57 PM Electronically Signed By:EMILI Saravia [facility] CM Progress Note CM Note CM Note Notes: Pt is having open heart surgery today. Needs are TBD at this time. CM will discuss with Dr. Marsh/team. Date Signed: 09/22/2018 10:29 AM Electronically Signed By:EMILI Saravia [facility] CM Progress Note CM Note CM Note Notes: Patient transferred to ICU after code blue, Shantal was in the room and has called her sister for support. CM to follow. Date Signed: 09/24/2018 10:45 AM Electronically Signed By:Rochelle Staley [facility] CM Progress Note CM Note CM Note Notes: Pt admitted for CABG x3, with code blue event two days later; Pt having pacer with defibrillator placed today. PT now recommending home independently with outpatient cardiac rehab. Spoke with pt's who is a little nervous about that plan, but willing to wait and see. CM to follow. D/C Plan: Home with OP Cardia Rehab vs [facility] Date Signed: 09/27/2018 12:24 PM Electronically Signed By:Marge Dewitt [facility] CM Progress Note CM Note CM Note Notes: 09/28/2018 Case Management Note Discussed with Joaquin Payne this morning. Anticipating d/c tomorrow or Tuesday. Case Management d/c poc: home with outpatient cardiac rehab. Case Management available if needs change. Date Signed: 09/28/2018 03:02 PM Electronically Signed By:Debbie Vásquez RN Case Management Discharge Plan Note Case Management Discharge Discharge Order Complete? Answers: Yes Patient to Obtain Answers: via Family Medications Transportation Arranged Answers: Family/Friends Discharge Comments Notes: Pt is discharging home with family and no CM needs. He will follow up with outpt cardiac rehab. Date Signed: 09/29/2018 01:25 PM Electronically Signed By:LAURA Matthews Intervention Information Intervention Type:No Admission Order Date of Service:09/21/2018 06:19 AM Patient Type:Observation Staff Member:JOSE Lucio, Ofelia Hours: Discipline: Severity: Comment:
[2018-09-29] MEDS ORDERED: CARVEDILOL 6.25 MG TAB PO SCH (18:00)
== END 2018-09-29 16:39 | disposition home or self-care (01) | DRG 216 ==
LOC: FCATH 11:57 → F2W 15:11 → OBSVTOIN 09-21 10:49 → F2N 09-22 10:26 → F2W 09-23 14:30 → F2N 09-24 10:33 → F2W 09-27 20:15
PROVIDERS: ADMIT Thoracic Surgery (Cardiothoracic Vascular Surgery); ATTEND Thoracic Surgery (Cardiothoracic Vascular Surgery)
DX: I25.119 Atherosclerotic heart disease of native coronary artery with unspecified angina pectoris (principal); Q23.1 Congenital insufficiency of aortic valve; I45.81 Long QT syndrome; I44.2 Atrioventricular block, complete; I46.9 Cardiac arrest, cause unspecified; D62 Acute posthemorrhagic anemia; G93.40 Encephalopathy, unspecified; R47.01 Aphasia; N17.9 Acute kidney failure, unspecified; R05 Cough; I48.0 Paroxysmal atrial fibrillation; J96.11 Chronic respiratory failure with hypoxia; I47.2 Ventricular tachycardia; G43.909 Migraine, unspecified, not intractable, without status migrainosus; K21.9 Gastro-esophageal reflux disease without esophagitis; I10 Essential (primary) hypertension; E78.5 Hyperlipidemia, unspecified; Z79.01 Long term (current) use of anticoagulants
CPT/HCPCS: 82435-PO; 82565-PO; 82947-PO; 83605-PO; 84132-PO; 84295-PO; 84520-PO; 85014-PO; 92507-GN; 92523-GN; 92526-GN; 92610-GN; 97116-GP; 97161-GP; 97164-GP; 97166-GO; 97530-GO; 97530-GP; 97535-GO; C1721; C1768; C1895; C1898; G8978-GP-CI; G8978-GP-CJ; G8979-GP-CI; G8980-GP-CI; G8987-GO-CL; G8988-GO-CI; G8989-GO-CI; G8996-GN-CH; G8997-GN-CH; G8998-GN-CH; G9162-GN-CK; G9163-GN-CI; J0153; J0282; J0690; J1100; J1265; J1630; J1644; J1650; J1815; J1940; J2001; J2150; J2250; J2260; J2270; J2370; J2405; J2440; J2704; J2720; J2930; J3010; J3475; J3480; P9041; Q9967

== ENCOUNTER → 2018-10-10 | Outpatient (CLI) | payer OTHER | LOC: FIMAGING 08:40 | PROVIDERS: ATTEND Thoracic Surgery (Cardiothoracic Vascular Surgery) | DX: I51.7 Cardiomegaly (principal); Z95.2 Presence of prosthetic heart valve; Z95.1 Presence of aortocoronary bypass graft ==

== ENCOUNTER → 2018-10-25 | Outpatient (CLI) | payer OTHER | LOC: FIMAGING 07:18 | PROVIDERS: ATTEND Internal Medicine Cardiovascular Disease | DX: M79.89 Other specified soft tissue disorders (principal) ==

== ENCOUNTER → 2019-03-29 | Outpatient (CLI) | payer OTHER | LOC: FIMAGING 11:13 | PROVIDERS: ATTEND Internal Medicine Pulmonary Disease | DX: R05 Cough (principal); R06.09 Other forms of dyspnea; G47.30 Sleep apnea, unspecified; M47.894 Other spondylosis, thoracic region; Z95.810 Presence of automatic (implantable) cardiac defibrillator ==

== ENCOUNTER → 2019-04-10 | Outpatient (CLI) | payer OTHER | LOC: FIMAGING 08:56 ==